=== PATIENT | female | born 1955 | race Caucasian/White ===

== ENCOUNTER → 2018-04-20 07:12 | Outpatient (CLI) | payer BC, SELFPAY ==
--- NOTE | 2018-04-20 07:16 | BI_ITS ---
MAMMOGRAPHY - BILATERAL SCREENING REASON FOR EXAM: Female, 62 years old. Routine annual screening examination. PERTINENT HISTORY: Non-contributory. TECHNIQUE: Digital bilateral breast naga (3D mammographic acquisition) in the CC and MLO projections. 2-D mediolateral oblique (MLO) and craniocaudad (CC) views of both breasts were obtained. CAD: Full Field Digital Mammography with Computer Added Detection was performed. COMPARISON: Comparison is made with prior study dated August 19, 2016 and September 05, 2014. FINDINGS: Breast Composition: There are scattered areas of fibroglandular density. There are no dominant masses or suspicious calcifications. No other significant abnormalities are identified. There has been no significant change since the prior study. BI/SCREENING MAMM (CAD), BILAT IMPRESSION: Stable bilateral screening mammogram. Yearly follow-up mammogram recommended. (A) ASSESSMENT CATEGORY: BIRADS Category 1: Negative. A letter regarding these results will be sent to the patient by the facility within 30 days. Approximately 10% of breast cancers are not detected by mammography. A normal mammogram should not delay biopsy of a clinically suspicious abnormality. [id number] Electronically Signed: Zackary Liu, at 9:50 EDT , Service support ,
== END ==
PROVIDERS: Family Provider Family Medicine; PCP Family Medicine; Referring Provider Obstetrics & Gynecology; Visit Provider Obstetrics & Gynecology
DX: Z12.31 Encounter for screening mammogram for malignant neoplasm of breast (principal)
CPT/HCPCS: 77063; 77067

== ENCOUNTER → 2019-01-11 13:12 | Outpatient (CLI) | payer BC, SELFPAY ==
--- NOTE | 2019-01-11 13:18 | CT_ITS ---
STUDY: CT MAXILLOFACIAL SINUSES REASON FOR EXAM: Female, 63 years old. Sinusitis RADIATION DOSAGE (If Supplied By Facility): CTDIvol = ( 33.06 ) mGy, DLP = ( 788.40 ) mGycm TECHNIQUE: The patient was scanned in a multi detector CT scanner. High resolution axial imaging was performed without the administration of intravenous contrast material. Sagittal and coronal images were reconstructed. Individualized dose optimization techniques were used for this CT. COMPARISON: None. FINDINGS: FRONTAL SINUSES: Normal aeration, without mucosal inflammatory disease. ETHMOIDAL SINUSES: There is minimal ethmoid sinus mucosal thickening. MAXILLARY SINUSES: There is a near opacified appearance of the left maxillary sinus with multiple mucosal retention cysts. There is also a left side maxillary tooth with surrounding bony covering and an odontogenic cyst or potentially abscess with expansion into the left maxillary sinus. See image 89 sagittal views. SPHENOIDAL SINUSES: There is mucoid thickening of the sphenoid sinuses. There is patency of the bilateral maxillary infundibuli with normal uncinate processes, ethmoid bullae, and hiatus semilunaris. Normal bilateral middle turbinates. Normal bilateral inferior turbinates. There is mild leftward nasal septal deviation. There is patency of the bilateral nasal airways. There is partially visualized degenerative change in the cervical spine. There is a ovoid shape of the eyes. With proptosis Allowing for this positioning there is a thickened appearance of the lingual tonsils. CT/Sinus/Facial Bone IMPRESSION: Chronic left maxillary sinusitis, sphenoid sinusitis, minimal ethmoid sinusitis. The chronic left maxillary sinusitis may be associated with a odontogenic cyst or potentially a periodontal abscess which is associated with dental root canal. Enlarged ovoid shape of the eyes with proptosis recommend ophthalmology consult. Electronically Signed: Gloria Cedillo MD at 14:06 EST Tel , Service support ,
== END ==
PROVIDERS: Family Provider Family Medicine; PCP Family Medicine; Referring Provider Otolaryngology; Visit Provider Otolaryngology
DX: J32.0 Chronic maxillary sinusitis (principal); J32.3 Chronic sphenoidal sinusitis
CPT/HCPCS: 70486

== ENCOUNTER 2019-11-08 09:36 | Inpatient (IN) | payer BC, SELFPAY ==
[2019-11-08] VITALS (16 sets, daily range): BP systolic 82–173; BP diastolic 48–106; PULSE 63–95; RESP 15–19; TEMP 36.1–36.9; O2SAT 94–100; BMI 28.2; BMI 27.7
--- NOTE | 2019-11-08 09:53 | EKG12_ITS ---
Test Reason : CP Blood Pressure : / mmHG Vent. Rate : 088 BPM Atrial Rate : 088 BPM P-R Int : 148 ms QRS Dur : 092 ms QT Int : 368 ms P-R-T Axes : 065 049 027 degrees QTc Int : 445 ms Normal sinus rhythm Normal ECG Confirmed by CRICKET PAYAN, SAHIL ([id number]), editorial project manager HAIM BARRIGA ([id number]) on 11/15/2019 8:58:11 AM Referred By: JUAN MANUEL Confirmed By:BIBI HARLEY MD
--- NOTE | 2019-11-08 09:53 | RAD_ITS ---
STUDY: X-RAY CHEST REASON FOR EXAM: Female, 64 years old. PT C/O CHEST PRESSURE. STATES HAD IT THURSDAY AND TOOK CAYENNE PEPPER AND IT WENT AWAY. WAS TOLD BY PCP TO COME IN TODAY TECHNIQUE: Single AP portable view of the chest. COMPARISON: Comparison is made with prior study dated 07/08/2016. FINDINGS: EKG electrodes are seen. Hyperinflation. Scattered calcified granulomas. There is no demonstrated pleural abnormality. Normal size heart. Normal mediastinum and vick. Normal visualized pulmonary arteries. There is atherosclerotic tortuosity of the aortic arch and descending thoracic aorta. There are diffuse degenerative changes of the visualized thoracic spine. Normal visualized ribs, clavicles, and shoulders. There is no demonstrated abnormality of the visualized soft tissue structures of the upper abdomen. RAD/Chest 1 View (Portable) IMPRESSION: Hyperinflation. Scattered calcified granulomas. Electronically Signed: Zackary Liu, at 10:17 EDT , Service support ,
--- NOTE | 2019-11-08 09:54 | ED.DCSUM_ITS ---
History of Present Illness Chief Complaint: Chest Pain Informant: Patient Narrative: Patient presents the emergency room with left-sided chest pressure. She states symptoms began Thursday evening and she took some cayenne pepper and water and fell asleep. She states she felt pretty good yesterday. She was attributing it to lifting her grandchildren. Symptoms returned this morning when she woke and have been constant for the past several hours. She notes it radiates towards her left axilla. She notes that she felt nauseous on the way into the hospital today. Patient is treated for hypertension and states that she is a prediabetic. No shortness of breath. Nothing seems to make the pain better or worse. No fevers. No cough. She currently takes HCTZ for hypertension. She states that in the past she was on a beta-brigette but wanted to reduce number of prescription she is took and it was discontinued. Past Medical History - Allergies and Home Meds Allergies/Adverse Reactions: Allergies Sulfa (Sulfonamide Antibiotics) Allergy (Verified 11/08/19 09:36) Rash Primary Care Physician: Abdoul Cheng DO [Primary Care Provider] - Prior records reviewed: Yes Past Medical History: - - Hypertension Surgical History: noncontributory Smoking Status: Never smoker Drugs: None Review of Systems General: Denies: Chills, Fever, Sweats Eyes: Denies: Visual changes - bilaterally, Diplopia ENT: Denies: Rhinorrhea, Sore throat Cardiovascular: Reports: Chest pain. Denies: Palpitations Respiratory: Denies: Dyspnea, Cough, Dyspnea on exertion Gastrointestinal: Denies: Abdominal pain, Nausea, Vomiting, Diarrhea, Melena, Hematochezia Genitourinary: Denies: Dysuria, Hematuria, Frequency Musculoskeletal: Reports: Extremity Pain - Chronic knee and foot issues. Denies: Back pain Skin: Denies: Rash, Wounds Neurological: Denies: Headache, Weakness, Numbness Physical Exam Vital Signs/Narrative: Vital Signs Temp Pulse Resp BP Pulse Ox 11/08/19 09:38 97.4 F L 87 16 168/106 H 100 Inital Vital Signs reviewed: Yes General: Well nourished, Well developed, No Acute Distress Head: Normocephalic, Atraumatic Eyes: Perrl, EOMI ENT: Moist mucous membranes, No rhinorrhea Neck: Supple, Nontender Cardiovascular: Regular rate, Regular rhythm, No murmurs Respiratory: No distress, CTA bilaterally, Chest nontender Abdomen: Soft, Nontender, Nondistended, Normal bowel sounds Back: Nontender, Normal Inspection Extremities: Nontender, No edema Skin: Normal color, No rash Neurological: Alert, Oriented x3, Cranial nerves II-XII grossly intact, Normal Strength, Normal Sensation Psychological: Normal affect, Normal Mood Diagnostic/Tx/Re-eval Clinical Impression(s) from Imaging Studies Chest X-Ray 11/08/19 09:53 IMPRESSION: Hyperinflation. Scattered calcified granulomas. Electronically Signed: Zackary Noe, at 10:17 EDT , Service support , Laboratory Last Values WBC 4.8 K/mm3 (4.4-11.0) 11/08/19 09:54 RBC 4.99 M/mm3 (4.2-5.4) 11/08/19 09:54 Hgb 14.5 g/dL (12.0-15.0) 11/08/19 09:54 Hct 43.8 % (37-47) 11/08/19 09:54 MCV 87.8 fL (81-99) 11/08/19 09:54 MCH 29.1 pg (27.0-32.0) 11/08/19 09:54 MCHC 33.1 g/dL (32-36) 11/08/19 09:54 RDW Std Deviation 42.4 fl (35.1-43.9) 11/08/19 09:54 RDW Coeff of Mary 13.4 % (11.6-14.6) 11/08/19 09:54 Plt Count 277 K/mm3 (150-450) 11/08/19 09:54 MPV 8.9 fl (6.2-12.0) 11/08/19 09:54 Immature Gran % (Auto) 0.200 % (0.0-0.9) 11/08/19 09:54 Neut % (Auto) 68.6 % (47-70) 11/08/19 09:54 Lymph % (Auto) 18.2 % (19-41) L 11/08/19 09:54 [place] % (Auto) 6.8 % (0-10) 11/08/19 09:54 Eos % (Auto) 5.8 % (0-5) H 11/08/19 09:54 Baso % (Auto) 0.4 % (0-1) 11/08/19 09:54 Absolute Neuts (auto) 3.3 X10^3/uL (2.0-7.7) 11/08/19 09:54 Absolute Lymphs (auto) 0.88 X10^3/uL (0.83-4.51) 11/08/19 09:54 Nucleated RBC % 0 % (0-5) 11/08/19 09:54 Sodium 138 mmol/L (136-145) 11/08/19 10:30 Potassium 3.5 mmol/L (3.5-5.1) 11/08/19 10:30 Chloride 105 mmol/L (98-107) 11/08/19 10:30 Carbon Dioxide 28.0 mmol/L (21.0-32.0) 11/08/19 10:30 Anion Gap 5 (5-15) 11/08/19 10:30 BUN 18 mg/dL (7-18) 11/08/19 10:30 Creatinine 0.80 mg/dL (0.55-1.02) 11/08/19 10:30 Estim Creat Clear Calc 68.26 ml/min 11/08/19 10:30 Est GFR (MDRD) Af Amer 93 mL/min (>60) 11/08/19 10:30 Est GFR (MDRD) Non-Af 77 mL/min (>60) 11/08/19 10:30 BUN/Creatinine Ratio 22.4 RATIO (10-20) H 11/08/19 10:30 Glucose 114 mg/dL (74-106) H 11/08/19 10:30 Calcium 9.3 mg/dL (8.5-10.1) 11/08/19 10:30 Troponin I 0.378 ng/mL (<0.045) H 11/08/19 10:30 - EKG Initial EKG Interpretation: Sinus Rhythm - EKG demonstrates a normal sinus rhythm at a rate of 88 without ectopy or concerning features of ACS - Medical Decision Making Patient's initial EKG does not show any concerning features of ACS. Her troponin reveals elevation consistent with NSTEMI. Initially the patient received Toradol to see if that would make an improvement in her pain. After the troponin came back elevated she received aspirin and nitroglycerin. She continues to have some discomfort (2/10) but became hypotensive 82/48 after the third nitroglycerin. She received IV fluids. I spoke with Dr. Aguirre (on-call cardiology) who would like the patient placed on a heparin and nitroglycerin drip (if possible) and admitted for plan karsten heart cath today. I spoke with Dr. Millan who will be admitting the patient. - Critical Care Time Critical care time (excluding procedures): 30-74 minutes - 35 min ED Disposition - Plan for ED Patient: Disposition: Acute Care Hospital [facility] Diagnosis: Acute chest pain, Acute coronary syndrome with high troponin Referrals: Abdoul Cheng DO [Primary Care Provider] -
[2019-11-08] MEDS: Ketorolac 30 MG/ML Syringe IV (10:02)
[2019-11-08 10:04] LABS: Absolute Lymphocyte Count 0.88 X10^3/uL (0.83-4.51); Absolute Neutrophil Count 3.3 X10^3/uL (2.0-7.7); Basophil# 0.02 X10^3/uL; Basophil% 0.4 % (0-1); Eosinophil# 0.28 X10^3/uL; Eosinophils% 5.8 % (0-5); Hematocrit 43.8 % (37-47); Hemoglobin 14.5 g/dL (12.0-15.0); Lymphocyte # 0.88 X10^3/ul (4.0); Lymphocyte % 18.2 % (19-41); Mean Corp Hgb Conc 33.1 g/dL (32-36); Mean Corpuscular Hgb 29.1 pg (27.0-32.0); Mean Corpuscular Volume 87.8 fL (81-99); Mean Platelet Vol. 8.9 fl (6.2-12.0); Monocyte# 0.33 X10^3/uL; Monocyte% 6.8 % (0-10); NRBC Flagged by Analyzer 0 % (0-5); Neutrophil # 3.31 X10^3/uL (2.7-7.7); Neutrophil % 68.6 % (47-70); Platelet Count 277 K/mm3 (150-450); RBC Distribution Width CV 13.4 % (11.6-14.6); RBC Distribution Width SD 42.4 fl (35.1-43.9); Red Blood Count 4.99 M/mm3 (4.2-5.4); White Blood Count 4.8 K/mm3 (4.4-11.0)
[2019-11-08 10:55] LABS: Anion Gap 5 (5-15); BUN 18 mg/dL (7-18); BUN/Creat Ratio 22.4 RATIO (10-20); Calcium,Total 9.3 mg/dL (8.5-10.1); Chloride 105 mmol/L (98-107); EST Glomerular Filtration Rate 77 mL/min (>60); Est Glom Filt Rate - Afr Amer 93 mL/min (>60); Estimated Creatinine Clearance 68.26 ml/min; Glucose 114 mg/dL (74-106); Potassium 3.5 mmol/L (3.5-5.1); Sodium Level 138 mmol/L (136-145)
[2019-11-08] MEDS: Aspirin 81 MG TAB.CHEW 324 MG PO (11:20)
[2019-11-08] MEDS: Nitroglycerin SL (ED/IMG/CATH) 0.4 MG TABLET SUBLINGUAL ×3 (11:21→11:35)
[2019-11-08 11:51] LABS: Prothrombin Time (Protime)PT. 12.9 SECONDS (11.7-14.9)
[2019-11-08 11:52] LABS: Partial Thromboplast Time 29.4 Seconds (24.1-36.2)
[2019-11-08] MEDS: Heparin Injection (Vial) 5,000 UNIT/ML VIAL 5000 UNIT IV (12:09)
--- NOTE | 2019-11-08 13:11 | ECHOD_ITS ---
Reason For Study: S/P NV Procedure This was a 2D Doppler, Color Flow transthoracic echocardiogram. Exam performed portable in patient room. Left Ventricle Normal LV size. The estimated ejection fraction is 65 %. No evidence for diastolic dysfunction. No regional wall motion abnormalities noted. Right Ventricle Normal RV size. Normal systolic function. Atria Normal left atrium. Normal right atrium. No doppler evidence for ASD. Mitral Valve There is no mitral valve stenosis. Trivial mitral valve insufficiency. Tricuspid Valve There is no tricuspid stenosis. Mild tricuspid valve insufficiency. Pulmonary artery systolic pressure is 35 mmHg. Aortic Valve Trisinus/trileaflet aortic valve. Aortic sclerosis, no stenosis. There is no aortic stenosis. No aortic valve insufficiency. Pulmonic Valve There is no pulmonic valvular stenosis. No pulmonic valve insufficiency. Great Vessels Normal aortic root. Pericardium/Pleural No pericardial effusion. MMode/2D Measurements & Calculations LVIDd: 4.9 cm IVSd: 0.89 cm Ao root diam: 3.6 cm LVIDs: 2.7 cm LVPWd: 1.0 cm RVDd: 3.2 cm FS: 44.9 % LAV(MOD-bp): 41.2 ml LA A4 area: 14.4 cm2 LA dimension(2D): 3.9 cm LAV(MOD-bp) Indexed: 22.0 ml/m2 LAV(MOD-sp2): 44.5 ml LAV(MOD-sp4): 36.0 ml RA A4 area: 12.8 cm2 Time Measurements MV dec time: 0.19 sec Doppler Measurements & Calculations MV E max oc: 97.6 cm/sec Lat Peak E' Oc: 10.7 cm/sec Med Peak E' Oc: 6.5 cm/sec MV A max oc: 107.9 cm/sec E/E' lat: 9.1 E/E' med: 14.9 MV E/A: 0.90 MV V2 max: 103.6 cm/sec Ao V2 max: 190.7 cm/sec LV V1 max: 161.8 cm/sec MV max P.3 mmHg Ao max P.6 mmHg LV V1 max P.5 mmHg MV V2 mean: 75.0 cm/sec MV mean P.4 mmHg MV V2 VTI: 20.4 cm PA V2 max: 124.5 cm/sec PI end-d oc: 135.6 cm/sec TR max oc: 269.3 cm/sec TR max P.0 mmHg MV P1/2t-pr_phl: 42.7 msec Interpretation Summary The estimated ejection fraction is 65 %. No evidence for diastolic dysfunction. Trivial mitral valve insufficiency. Mild tricuspid valve insufficiency. Ordering Physician: Madyson Millan Referring Physician: MADYSON GARCIA Performed By: Yarely Espinoza, BRITTANIE, RVT
[2019-11-08] MEDS: Clopidogrel Bisulfate 300 MG Tablet PO (14:39)
--- NOTE | 2019-11-08 14:54 | PCM.HP.STD ---
Problem List (1) Acute chest pain Status: Acute (2) Acute coronary syndrome with high troponin Status: Acute (3) Hypertension Status: Chronic (4) Depression Status: Chronic History of Present Illness Date of Admission: 11/08/19 Chief Complaint: Chest pressure. The patient is a 64 year old F who presents emergency room due to chest pressure. Patient reports she had episode of chest pressure on Thursday on the left side of her chest which wrapped around to her axillary area she reports the pressure as severe. She states that episode lasted approximately 2 hours. She thought it may have been associated with lifting her grandchildren. Her symptoms resolved until this morning when she awoke with the same chest pressure, wrapping into her axillary area. She states she attempted cayenne pepper mixed with water to relieve her symptoms as she typically uses natural therapies. She denies associated shortness of breath, diaphoresis, dizziness/lightheadedness. She denies history of heart disease. Her chest pressure improved following nitro in ER. She has a past medical history of hypertension, depression. Past Medical History Past Medical History (Chronic Problems): Chronic Problems Hypertension (Chronic) Depression (Chronic) Allergies Sulfa (Sulfonamide Antibiotics) Allergy (Verified 11/08/19 09:36) Rash Home Medications: Ambulatory Orders Medication Instructions Recorded Fluoxetine [Prozac] 40 mg PO DAILY 11/08/19 Hydrochlorothiazide [Hctz] 25 mg PO DAILY 11/08/19 Thyroid,Pork [Nature-Throid] 16.25 mg PO DAILY 11/08/19 Surgical History: tonsillectomy, - - Right knee partial replacement, left knee total replacement. Psychiatric History: Depression MANAGEMENT ADVISOR History: No pertinent MANAGEMENT ADVISOR history Lives: Spouse/ Significant Other Smoking Status: Never smoker Alcohol: None Drugs: None - *Family History Maternal History Items: Hypertension Paternal History Items: Cancer Review of Systems Constitutional: Denies: Chills, Fever, Weight Change HEENT: Denies: Head Aches, Sinus Congestion, Sinus Drainage Cardiovascular: Reports: Chest Pressure. Denies: Light Headedness, Palpitations, Syncope Gastrointestinal: Denies: Abdominal Pain, Nausea, Vomiting Genitourinary: Denies: Dysuria Musculoskeletal: Denies: Joint Pain, Joint Tenderness Skin: Denies: Rash, Wounds Neurological: Denies: Numbness, Tingling, Focal weakness Psychiatric: Denies: Anxiety, Depression, Homicidal Ideations, Suicidal Ideations Hematologic/ Lymphatic: Denies: Easy Bruising, Easy Bleeding VTE Information - Inpt Only VTE Present on Admission: No VTE Mechan Device Prophylaxis: None VTE Pharm Prophylaxis ordered?: Yes Patient Problems: Active and Suspected Problems Acute chest pain (Acute) Acute coronary syndrome with high troponin (Acute) - Physical Exam Vitals/I&O's: Vital Signs Temp Pulse Resp BP Pulse Ox 98.2 F 85 18 153/85 H 97 11/08/19 12:53 11/08/19 13:08 11/08/19 12:53 11/08/19 12:53 11/08/19 12:53 Oxygen Flow Rate (L/min) 2 Oxygen Delivery Method Room Air Weight: 172 lb 6.424 oz Body Mass Index (BMI) 27.7 Intake and Output for Last 24 Hours 11/06/19 11/07/19 11/08/19 23:59 23:59 23:59 Intake Total 500 / 500 Balance 500 / 500 General: Alert, Oriented x3, Cooperative HEENT: Atraumatic, PERRLA, EOMI, Normocephalic Neck: Supple, No JVD, Negative Carotid Bruits Lungs: Clear to auscultation, Normal air movement Cardiovascular: Regular rate, No murmurs Abdomen: Bowel Sounds Present, Soft, Non Tender, Non-Distended Extremities: No clubbing, No cyanosis, No edema, Capillary Refill Less than 3 Seconds Skin: No rashes, No breakdown Musculoskeletal: No Tenderness to Palpation of Joints or Extremities Neurological: Cranial nerves II-XII grossly intact, Neuro grossly intact Psych/Mental Status: Normal Affect, Appropriate Laboratory Results 11/08/19 09:54: WBC 4.8, RBC 4.99, Hgb 14.5, Hct 43.8, MCV 87.8, MCH 29.1, MCHC 33.1, RDW Std Deviation 42.4, RDW Coeff of Mary 13.4, Plt Count 277, MPV 8.9, Immature Gran % (Auto) 0.200, Neut % (Auto) 68.6, Lymph % (Auto) 18.2 L, [place] % (Auto) 6.8, Eos % (Auto) 5.8 H, Baso % (Auto) 0.4, Absolute Neuts (auto) 3.3, Absolute Lymphs (auto) 0.88, Nucleated RBC % 0 11/08/19 09:54: Sodium Cancelled, Potassium Cancelled, Chloride Cancelled, Carbon Dioxide Cancelled, Anion Gap Cancelled, BUN Cancelled, Creatinine Cancelled, Estim Creat Clear Calc Cancelled, Est GFR (MDRD) Af Amer Cancelled, Est GFR (MDRD) Non-Af Cancelled, BUN/Creatinine Ratio Cancelled, Glucose Cancelled, Calcium Cancelled, Troponin I Cancelled 11/08/19 10:30: Sodium 138, Potassium 3.5, Chloride 105, Carbon Dioxide 28.0, Anion Gap 5, BUN 18, Creatinine 0.80, Estim Creat Clear Calc 68.26, Est GFR (MDRD) Af Amer 93, Est GFR (MDRD) Non-Af 77, BUN/Creatinine Ratio 22.4 H, Glucose 114 H, Calcium 9.3, Troponin I 0.378 H 11/08/19 11:34: PT 12.9, INR 1.0, APTT 29.4 11/08/19 13:35: Troponin I 1.390 H* Current Medications Aspirin (Aspirin, Baby) 81 mg PO DAILY@0800 [facility] Clopidogrel Bisulfate (Plavix) 75 mg PO DAILY [facility] Heparin Sodium (Porcine) (Heparin Na) 0 unit IV UD PRN; Protocol PRN Reason: dose adjustment Heparin Sodium/Sodium Chloride () 25,000 unit in 250 mls @ 9 mls/hr IV .[id number] [facility]; Protocol Last Admin: 11/08/19 14:35 Dose: 9,000 units/hr, 90 mls/hr Documented by: Morphine Sulfate () 4 mg IV Q3H PRN PRN PRN Reason: Pain Score 6-10/10 Nitroglycerin (Nitrobid) 0.5 inch TRANSDERM. Q6 [facility] Nitroglycerin (Nitrostat) 0.4 mg SUBLINGUAL Q5M PRN PRN Reason: CARDIAC/CHEST PAIN Ondansetron HCl (Zofran) 4 mg IV Q8H PRN PRN PRN Reason: NAUSEA/VOMITING Sodium Chloride () 10 - 40 ml IV UD PRN PRN Reason: SALINE FLUSH Temazepam (Restoril) 15 mg PO QHS PRN PRN PRN Reason: INSOMNIA Assessment/Plan All Active Problems Acute chest pain (Acute) Acute coronary syndrome with high troponin (Acute) 1. NSTEMI-trend enzymes. Cardiology consult. Continue aspirin, Plavix. On heparin drip. Transdermal nitro. Plan for cath in a.m. Obtain echo. Obtain lipid profile. 2. Hypertension-stable, on HCTZ. 3. Depression-continue fluoxetine. DVT prophylaxis-Heparin drip This patient was seen by ILANA Mesa under the supervision of Dr. Millan.
[2019-11-08] MEDS: Nitroglycerin Oint 1 INCH PACKET 0.5 INCH TRANSDERM. (18:24)
[2019-11-08] MEDS: 0.9% Saline Lock 10 ML Syringe IV (18:30)
--- NOTE | 2019-11-08 20:41 | EKG12_ITS ---
Test Reason : AM EKG Blood Pressure : / mmHG Vent. Rate : 086 BPM Atrial Rate : 086 BPM P-R Int : 150 ms QRS Dur : 094 ms QT Int : 392 ms P-R-T Axes : 070 060 026 degrees QTc Int : 469 ms Normal sinus rhythm Normal ECG When compared with ECG of 08-NOV-2019 20:54, MANUAL COMPARISON REQUIRED, DATA IS UNCONFIRMED Confirmed by CRICKET PAYAN, SAHIL ([id number]), commissioning editor HAIM BARRIGA ([id number]) on 11/15/2019 9:16:16 AM Referred By: ORIANA Confirmed By:BIBI HARLEY MD
[2019-11-08 21:34] LABS: Partial Thromboplast Time 54.7 Seconds (24.1-36.2)
[2019-11-08] MEDS: Carvedilol 6.25 MG Tablet PO (21:57)
[2019-11-08] MEDS: Atorvastatin Calcium 40 MG Tablet PO (21:57)
[2019-11-09] VITALS (14 sets, daily range): BP systolic 102–149; BP diastolic 71–96; PULSE 73–90; RESP 15–22; TEMP 36.8–36.9; O2SAT 94–98
[2019-11-09] MEDS: Nitroglycerin Oint 1 INCH PACKET 0.5 INCH TRANSDERM. ×2 (00:12→06:15)
[2019-11-09 01:32] LABS: Color, Urine Yellow (Yellow); Glucose, Dipstick Normal (Normal); Ketone-Dipstick Negative (Negative); Leukocyte Esterase-Dipstick 100 /ul (Negative); Nitrite-Dipstick Negative (Negative); Occult Blood-Urine Negative /ul (Negative); Protein-Dipstick Negative (Negative); Urine Bilirubin Dipstick Negative (Negative); Urine Clarity Clear (Clear); Urine Urobilinogen Normal (Normal)
[2019-11-09 04:08] LABS: Anion Gap 5 (5-15); BUN 19 mg/dL (7-18); BUN/Creat Ratio 30.1 RATIO (10-20); Calcium,Total 9.1 mg/dL (8.5-10.1); Chloride 106 mmol/L (98-107); Cholesterol 203 mg/dL (200); Creatinine, Serum 0.63 mg/dL (0.55-1.02); EST Glomerular Filtration Rate 101 mL/min (>60); Est Glom Filt Rate - Afr Amer 123 mL/min (>60); Estimated Creatinine Clearance 86.68 ml/min; Glucose 110 mg/dL (74-106); High Density Lipoprotein 46 mg/dL; Potassium 3.4 mmol/L (3.5-5.1); Sodium Level 139 mmol/L (136-145); Triglycerides 323 mg/dL; Very Low Density Lipoprotein 65 mg/dL (5-40)
--- NOTE | 2019-11-09 05:55 | EKG12_ITS ---
Test Reason : CP Blood Pressure : / mmHG Vent. Rate : 079 BPM Atrial Rate : 079 BPM P-R Int : 154 ms QRS Dur : 092 ms QT Int : 398 ms P-R-T Axes : 064 035 020 degrees QTc Int : 456 ms Normal sinus rhythm Normal ECG When compared with ECG of 08-NOV-2019 09:43, MANUAL COMPARISON REQUIRED, DATA IS UNCONFIRMED Confirmed by CRICKET PAYAN, SAHIL ([id number]), editor producer HAIM BARRIGA ([id number]) on 11/15/2019 9:17:52 AM Referred By: ORIANA Confirmed By:BIBI HARLEY MD
[2019-11-09] MEDS: Clopidogrel Bisulfate 75 MG Tablet PO (06:15)
[2019-11-09] MEDS: Aspirin 81 MG TAB.CHEW PO (06:15)
[2019-11-09] MEDS: Carvedilol 6.25 MG Tablet PO (06:15)
--- NOTE | 2019-11-09 07:20 | NURSING ---
Report called to Tevin in label press operator.
--- NOTE | 2019-11-09 08:54 | CON.PCM_ITS ---
Reason for Consult Date of Consultation: 11/08/19 Reason for Consultation: nstemi History of Present Illness: The patient is a 64 year old F who presents emergency room due to chest pressure. Patient reports she had episode of chest pressure on Thursday on the left side of her chest which wrapped around to her axillary area she reports the pressure as severe. She states that episode lasted approximately 2 hours. She thought it may have been associated with lifting her grandchildren. Her symptoms resolved until this morning when she awoke with the same chest pressure, wrapping into her axillary area. She states she attempted cayenne pepper mixed with water to relieve her symptoms as she typically uses natural therapies. She denies associated shortness of breath, diaphoresis, dizziness/lightheadedness. She denies history of heart disease. Her chest pressure improved following nitro in ER. She has a past medical history of hypertension, depression. ROS: All systems reviewed. All else is negative except that in the HPI Past Medical History Allergies/Adverse Reactions: Allergies Sulfa (Sulfonamide Antibiotics) Allergy (Verified 11/08/19 09:36) Rash Home Medications: Ambulatory Orders Medication Instructions Recorded Fluoxetine [Prozac] 40 mg PO DAILY 11/08/19 Hydrochlorothiazide [Hctz] 25 mg PO DAILY 11/08/19 Thyroid,Pork [Nature-Throid] 16.25 mg PO DAILY 11/08/19 Past Medical History (Chronic Problems): Chronic Problems Hypertension (Chronic) Depression (Chronic) Surgical History: tonsillectomy, - - Right knee partial replacement, left knee total replacement. Psychiatric History: Depression PATIENT DAY COORDINATOR History: No pertinent PATIENT DAY COORDINATOR history - *Family History Maternal History Items: Hypertension Paternal History Items: Cancer Lives: Spouse/ Significant Other Smoking Status: Never smoker Alcohol: None Drugs: None Objective: Vital Signs Temp Pulse Resp BP Pulse Ox 98.3 F 90 17 147/96 H 96 11/09/19 04:13 11/09/19 07:00 11/09/19 04:13 11/09/19 06:15 11/09/19 04:13 Oxygen Flow Rate (L/min) 2 Oxygen Delivery Method Room Air Weight: 172 lb 6.424 oz Body Mass Index (BMI) 27.7 Intake and Output for Last 24 Hours 11/07/19 11/08/19 11/09/19 23:59 23:59 23:59 Intake Total 1561.57 / 1561.57 114.66 / 114.66 Balance 1561.57 / 1561.57 114.66 / 114.66 General: Awake, Alert, Oriented x 3 HEENT: Atraumatic Oral: Moist Mucosa Neck: Supple Lungs: Clear to auscultation Cardiovascular: Regular Rhythm Abdomen: Soft Extremities: No edema Skin: No Rashes Psych/Mental Status: Appropriate 11/08/19 09:54: WBC 4.8, RBC 4.99, Hgb 14.5, Hct 43.8, MCV 87.8, MCH 29.1, MCHC 33.1, Plt Count 277, MPV 8.9, Immature Gran % (Auto) 0.200, Neut % (Auto) 68.6, Lymph % (Auto) 18.2 L, [place] % (Auto) 6.8, Eos % (Auto) 5.8 H, Baso % (Auto) 0.4, Absolute Neuts (auto) 3.3, Nucleated RBC % 0 11/08/19 09:54: Sodium Cancelled, Potassium Cancelled, Chloride Cancelled, Carbon Dioxide Cancelled, Anion Gap Cancelled, BUN Cancelled, Creatinine Cancelled, Est GFR (MDRD) Af Amer Cancelled, Est GFR (MDRD) Non-Af Cancelled, BUN/Creatinine Ratio Cancelled, Glucose Cancelled, Calcium Cancelled, Troponin I Cancelled 11/08/19 10:30: Sodium 138, Potassium 3.5, Chloride 105, Carbon Dioxide 28.0, Anion Gap 5, BUN 18, Creatinine 0.80, Est GFR (MDRD) Af Amer 93, Est GFR (MDRD) Non-Af 77, BUN/Creatinine Ratio 22.4 H, Glucose 114 H, Calcium 9.3, Troponin I 0.378 H 11/08/19 11:34: PT 12.9, INR 1.0, APTT 29.4 11/08/19 13:35: Troponin I 1.390 H* 11/08/19 17:03: Troponin I 2.040 H* 11/08/19 20:30: APTT 54.7 H 11/09/19 01:00: Urine Color Yellow, Urine Clarity Clear, Urine pH 6.0, Ur Specific [place] 1.010, Urine Protein Negative, Urine Glucose (UA) Normal, Urine Ketones Negative, Urine Occult Blood Negative, Urine Nitrite Negative, Urine Bilirubin Negative, Urine Urobilinogen Normal, Ur Leukocyte Esterase 100 H 11/09/19 03:40: Sodium 139, Potassium 3.4 L, Chloride 106, Carbon Dioxide 28.0, Anion Gap 5, BUN 19 H, Creatinine 0.63, Est GFR (MDRD) Af Amer 123, Est GFR (MDRD) Non-Af 101, BUN/Creatinine Ratio 30.1 H, Glucose 110 H, Calcium 9.1, Triglycerides 323 H, Cholesterol 203 H, LDL Cholesterol 92, VLDL Cholesterol 65 H, HDL Cholesterol 46 11/09/19 03:40: APTT 62.0 H Rhythm: EKG: ECHO: Stress Test: Cardiac Cath: PCI: CT Surgery: Holter monitor: EPS: PPM: CXR: Chest CT Scan: Assessment/Plan 1. Non-STEMI: Keep the patient on heparin, aspirin, Plavix, statin and beta- brigette. We will proceed with coronary angiography.
--- NOTE | 2019-11-09 09:10 | CASEMGMT ---
According to the [facility] website, the following are in-network tertiary facilities: [facility], [facility], [facility], [facility], [facility], [facility], [facility], and . Tammie PEREZ CM
[2019-11-09] MEDS: 0.9% Normal Saline 1,000 ML 100 ML IV (09:15)
[2019-11-09] MEDS: 0.9% Saline Lock 10 ML Syringe IV (09:16)
[2019-11-09 10:03] LABS: Partial Thromboplast Time 59.6 Seconds (24.1-36.2)
[2019-11-09] MEDS: hydroCHLOROthiazide 25 MG Tablet PO (10:03)
[2019-11-09] MEDS: FLUoxetine 20 MG Capsule 40 MG PO (10:03)
--- NOTE | 2019-11-09 10:04 | CL.D_ITS ---
Patient Name: MARY KAY GREENWOOD Study Date: 11/09/2019 Performing: Perfecto Aguirre MD Ht: 66 inches 168 cm : 1955 Wt: 172.2 lbs 78 kg Age: 64 Gender: female BSA: 1.88 PROCEDURE(S) PERFORMED TA42-CFQ/COR/LV CLINICAL PROFILE AND INDICATIONS Indications: ACS <= 24 hrs Heart Failure: None Stress/Imaging Stress/Image Study Performed: No CAD Presentations: Non-STEMI. 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 Preserved EF. No significant or MR RECOMMENDATIONS Medical management with ASA and BB DESCRIPTION OF PROCEDURE The patient arrived to the procedure lab. The risks and benefits of the procedure as well as a full d escription of our services here and current unavailability of surgical backup were fully explained to the patient and/or their significant other prior to the catheterization. The Timeout was completed, verifying the correct patient and procedure. The patient's procedural site was prepped and draped in the usual fashion. Local anesthetic was given subcutaneously to right radial region with Lidocaine 2% . Using a modified Seldinger technique, arterial access was obtained via the right radial artery, a 6 Fr sheath was inserted. Left Coronary Artery selective angiography was performed in multiple views u sing a 5 Fr. JL3.5 catheter. Left Ventriculography was performed in [place] projection using a 5 Fr. JR4. LV to AO pullback pressures were then recorded. Right Coronary Artery selective angiography was then performed in multiple views using a 5 Fr. JR 4 catheter.The arterial sheath was pulled and a TR Band was applied for hemostasis w/ 11ml CORONARY ANGIOGRAPHY DOMINANCE: Right Dominant LEFT HEART ASSESSMENT Left Ventricular Ejection Fraction: by LV Gram 60 % Normal LV wall motion LEFT MAIN: No significant disease noted LEFT ANTERIOR DESCENDING ARTERY: No significant disease noted CIRCUMFLEX ARTERY: No significant disease noted RIGHT CORONARY ARTERY: RT PLV: distal end of the RPL is severely narrowed due to what appears to be due to spontaneous coron thomas artery dissection. Rest of the RCA, RPL and RPDA have no significant disease VALVE FINDINGS: No Aortic Valve Stenosis No Mitral Insufficency COMPLICATIONS No Complications PROCEDURE MEDICATIONS Versed 1 mg IV Fentanyl 50 mcg IV Oxygen: 2 L/min via nasal cannula Heparin diluted in 23cc Heparinized saline. Patient given 10cc IA of this solution. 11/09/2019 08:22: 15 Verapamil 2.5mg, Ntg 100mcgs, 2000 units of Heparin diluted in 23cc Heparinized saline. Patient give n 10cc IA of this solution. 11/09/2019 08:22:15 SUMMARY OF HEMODYNAMIC DATA Time AIR REST ECG 07:57:35 AO 80/51 (62) SA 08:24:40 LV 138/-8, 8 08:28:45 LV 141/-9, 9 08:28:51 LV 129/-11, 5 08:29:26 LVp 135/-7, 10 08:29:33 AOp 133/79 (104) 08:29:38 AO 129/77 (100) 08:29:46 Signed By Perfecto Aguirre MD On 11/09/2019 10:03:32 AM Perfecto Aguirre MD
--- NOTE | 2019-11-09 10:34 | CASEMGMT ---
ANA SHAH assessment: Face to Face with patient for initial transition planning/care coordination assessment. ANA SHAH introduced self and role at [facility], pt voices understanding and consents to assessment at this time. Pt is sitting up in bed in no distress at this time. Pt is A/Ox4 at this time and answers all questions appropriately at this time. Pt's is at bedside during assessment. Care providers, pharmacy, and demographics verified/updated at this time. Presentation: Pt c/o chest pressure Admitting dx: ACS, NSTEMI PCP: Skylar Specialists: susy Giles Pharmacy: [facility] Insurance: [place] Prescription Benefit: [place] Living Will/HPOA: Pt states has a LW/HPOA and is aware that they are not on file at [facility] at this time. Pt states her , Ortega Stewart, is HPOA. LNOK: Ortega Stewart, Living Arrangements: Pt states lives with in 1 story home with laundry in basement and states no concerns at home at this time. Pt states is independent with ADL's. Transportation: Pt states drives self and states no transportation concerns at this time. DME/HHC: Pt states has grab bars in shower and states no need for any further DME at this time. Pt states no hx of HHC or SNF in the past. Pt states no concerns with going home at time of discharge. 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 Pt states does not smoke cigarettes or drink ETOH. Pt states no further concerns/needs at this time. CM to follow for any further discharge planning/needs. Advised pt to ask for CM if any further questions/concerns/needs arise, voices understanding. Pt Goal: Home Plan[place] ANA SHAH
--- NOTE | 2019-11-09 10:57 | PCM.DC ---
- Discharge Diagnoses Current Active Problems: Current Active and Chronic Problems Acute chest pain (Acute) Acute coronary syndrome with high troponin (Acute) Hypertension (Chronic) Depression (Chronic) You will use the following diet at home:: No restrictions Your food should be the consistency of: Regular Your liquids should be the consistency of: Regular/Thin Discharge Activity: Return to Normal Activity Return to work on:: 11/16/19 Weight Bearing Status: Full weight bearing Additional Instructions: TAKE 81 MG ASPIRIN DAILY Allergies/Adverse Reactions: Allergies Sulfa (Sulfonamide Antibiotics) Allergy (Verified 11/08/19 09:36) Rash Medications to take at Discharge Fluoxetine [Prozac] 40 mg PO DAILY 11/08/19 Thyroid,Pork [Nature-Throid] 16.25 mg PO DAILY 11/08/19 Carvedilol [Coreg] 12.5 mg PO BID #60 tab 11/09/19 The following prescriptions were given: Carvedilol [Coreg] 12.5 mg PO BID #60 tab Transmission Status: Pending to [facility] #30 Primary Care Physician: Abdoul Cheng DO [Primary Care Provider] - Please follow up with your Primary Care Physician in: in 1-2 Test Results: Test results from this visit will be discussed in further detail at your follow-up appointment, if applicable. Please Follow Up With: Katey Aguirre MD When: in 3 weeks
--- NOTE | 2019-11-09 12:08 | PHA.DC.MC ---
Pharmacy Service has performed discharge medication reconciliation and counseling for this patient. 1. CARVEDILOL 12.5MG PO BID 2. ASPIRIN 81MG PO DAILY (PER D/C INSTRUCTIONS) The patient's discharge medication list was reviewed for discrepancies and discrepancies were resolved. Home Medications Fluoxetine [Prozac] 40 mg PO DAILY 11/08/19 Thyroid,Pork [Nature-Throid] 16.25 mg PO DAILY 11/08/19 Carvedilol [Coreg] 12.5 mg PO BID #60 tab 11/09/19 The patient was counseled on the following discharge medications and changes in medications for homegoing were reviewed. The Reason for Use, instructions for use, and potential side effects were reviewed for all new medications. The patient's questions regarding all of their medications were answered. The patient was able to verbally demonstrate an understanding of their discharge medications.
--- NOTE | 2019-11-14 13:40 | PCM.DC.SUM ---
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 #2 essential hypertension #3 chronic depression #4 acute non-STEMI - Secondary Discharge Diagnosis Chronic Problems: Chronic Problems Hypertension (Chronic) Depression (Chronic) Hospital Course and Treatment Operations: None Procedures: 2-D Echocardiogram, Cardiac catheterization Summary of Care Provided: The patient is a 64 year old F who was seen in the emergency room at [facility] with chief complaint of left-sided chest pressure, she stated the discomfort first started 2 days ago and went away spontaneously, the symptoms return morning she was seen in the emergency room shortly after she woke and it been constant for the past several hours. Work-up in the emergency room included an EKG which does not show any signs of acute ischemic changes, troponin was elevated at 0.378 consistent with a non-STEMI, patient will receive aspirin and nitroglycerin in the emergency room and IV fluids. Patient was placed on IV heparin and Nitropaste and admitted to PCU, echocardiogram was obtained that day which showed a normal EF, she was seen in consultation by cardiology who then performed a cardiac catheterization on 11/09/2019-this revealed a spontaneous coronary artery dissection in the right coronary artery, the treatment for this would be medical. On 11/09/2019, patient was seen and examined: On examination she appeared in good health and spirits, she does not appear to be in any distress. Vital signs as documented. Skin warm and dry and without overt rashes. Neck without JVD, thyroid appears normal, trachea is midline, neck is supple. Lungs clear, normal air movement was noted. Heart exam notable for regular rhythm, normal sounds and absence of murmurs, rubs or gallops. Abdomen unremarkable and without evidence of organomegaly, masses, or abdominal aortic enlargement, bowel sounds are present in all 4 quadrants, no abdominal tenderness was noted. Extremities nonedematous, no cyanosis was noted, no clubbing was noted. Neuro: Cranial nerves II through XII are grossly intact, no focal motor deficits were noted, sensation to light touch and pinprick is intact, motor exam 5/5 throughout. Psych: Patient is alert and oriented x3, she does not appear anxious or depressed, she does not appear agitated. On 11/09/2019, patient was seen and examined and felt in stable condition for discharge home. - Physical Exam Vitals/I&O's: Vital Signs Temp Pulse Resp BP Pulse Ox 98.5 F 89 19 H 123/75 H 97 11/09/19 11:55 11/09/19 11:55 11/09/19 11:55 11/09/19 11:55 11/09/19 11:55 Oxygen Flow Rate (L/min) 2 Oxygen Delivery Method Nasal Cannula Weight: 78.2 kg Body Mass Index (BMI) 27.7 Discharge Activity: Return to Normal Activity Return to work on:: 11/16/19 Weight Bearing Status: Full weight bearing Home Medications: Medications to take at Discharge Fluoxetine [Prozac] 40 mg PO DAILY 11/08/19 Thyroid,Pork [Nature-Throid] 16.25 mg PO DAILY 11/08/19 Carvedilol [Coreg] 12.5 mg PO BID #60 tab 11/09/19 Following Prescriptions Were Given to Patient: Carvedilol [Coreg] 12.5 mg PO BID #60 tab Transmission Status: Received by [facility] #30 Primary Care Physician: Abdoul Cheng DO [Primary Care Provider] - Please follow up with your Primary Care Physician in: in 1-2 Please Follow Up With: Katey Aguirre MD When: in 3 weeks Disposition: Home Minutes spent on discharge:: 31 Patient Condition:: Stable Medical Necessity - Tobacco Use Smoking Status: Never smoker Meaningful Use Info Meaningful Use Diagnoses (Choose all that apply): None applicable Inpatient E&M: 65768 Disch Hosp
== END 2019-11-09 12:18 | disposition home or self-care (01) | DRG 280 ==
LOC: ED 11:17 → PCU 14:07
PROVIDERS: Admitting Provider Internal Medicine; Emergency Provider Emergency Medicine; PCP Family Medicine; Visit Provider Internal Medicine
DX: I21.4 Non-ST elevation (NSTEMI) myocardial infarction (principal); I25.42 Coronary artery dissection; I25.10 Atherosclerotic heart disease of native coronary artery without angina pectoris; I95.9 Hypotension, unspecified; I10 Essential (primary) hypertension; R73.03 Prediabetes; F32.9 Major depressive disorder, single episode, unspecified; Z79.899 Other long term (current) drug therapy; Z96.653 Presence of artificial knee joint, bilateral
CPT/HCPCS: 36415; 71045; 80048; 80061; 81002; 84484; 85025; 85610; 85730; 93005; 93306; 93458; 99152; 99153; 99285; J7030; J7040; A4216; C1769; C1894; Q9967

== ENCOUNTER → 2019-12-13 11:00 | Outpatient (CLI) | payer BC, SELFPAY ==
[2019-12-02 09:46] VITALS: BMI 29.0
[2019-12-13 16:03] LABS: CRP < 2.90 mg/L (0.0-3.0); Rheumatoid Factor < 10.0 IU/mL (<15)
[2019-12-13 17:31] LABS: Erythrocyte Sedimentation Rate 17 mm/hr (0-30)
[2019-12-15 16:53] LABS: ANTINUCLEAR ANTIBODIES DIRECT Negative (Negative)
[2019-12-17 10:56] LABS: CCP IgG Antibodies 7 units (0-19)
== END ==
PROVIDERS: PCP Family Medicine; Visit Provider Family Medicine
DX: I25.42 Coronary artery dissection (principal); M25.50 Pain in unspecified joint
CPT/HCPCS: 36415; 85652; 86038; 86140; 86200; 86225; 86235; 86431

== ENCOUNTER → 2019-12-16 10:10 | Outpatient (CLI) | payer BC, SELFPAY ==
[2019-12-02 09:46] VITALS: BMI 29.0
--- NOTE | 2019-12-16 10:11 | CR.ITP_ITS ---
Diagnosis - General Information Admitting Diagnosis: NSTEMI, STABLE ANGINA PECTORIS Personal Learning Style:: Audio/Visual, Written Barriers to Learning: No Barriers Stage of change r/t lifestyle modifications:: Action Gave educational material for:: Treating Heart Disease, Emotions & Heart Disease, Stress Management & Relaxation, Sleep Disorders & Heart Disease, How The Heart Works, What it means to have Heart Disease, How Coronary Artery Disease is Diagnosed, Heart Procedures, What Heart Medications Do, Risk Factors & Modifications, Living an Active Life, Nutrition - Education/Goals Individual Counseling: Initial Assessment: Abnormal Cholesterol Levels, High Blood Pressure, Overweight/Obesity Cardiac Rehabilitation Goals: 1. Maintain the individual as the primary focus of care. 2. To improve the patient's quality of life. 3. Identification of cardiac risk factors and provide cardiac risk factor management. 4. Enhance the psychosocial status of the patient. 5. Reconditioning enough to allow the patient to resume customary activities. 6. Control symptoms of cardiac disease Personal Goals: Initial Assessment: Improve energy level, Participate in home exercise program, Get back to work, or to resume activities faster, Improve knowledge of cardiac disease, Improve muscle strength and endurance, Control risk factors (learn risk factor modification) Scale for measuring improvement of personal goals: Enter appropriate number in Comments. 2 = Unchanged. 3 = Slightly Better. 4 = Moderate Improvement. 5 = Met my Goal - Diagnosis & Disease Process Outcomes/Goals: Pt IDs own risk factors & lifestyle modifications by Session 10, Verbalizes symptoms of angina & response by session 3., Pt independently manages Plan/Interventions: Assist Pt to ID & engage in lifestyle modification to reduce CVD risk, Instruct on individual risk factors, Review symptoms of angina & emergency actions, Review secondary diagnosis & identify educational needs. - Safety Referral to Physical Therapy: No Referral to [facility] Case Management: No Fall Risk Assessed:: No Assistive Devices:: None Exercise - Initial Assessment - Visit Date of Eval: 12/16/19 Session #:: 0 - PRE-CARDIAC REHAB Mets: Pre-: >7 METS for 30 minutes by discharge - Physician Prescribed Exercise Modalities: Treadmill, Rower, Airdyne, NuStep Frequency: 3x/week for 12 weeks [36 sessions] Intensity: 60-80% of age predicted maximum heart rate reserve Current METSs:: 4.0 Target Heart Rate:: 102-134 Resting Blood Pressure: 142/86 EKG Type: NSR - Outcomes & Goals Goals:: Verbalizes understanding of THR, RPE & goal METS by session 6, Documents in home exercise log/reports 30 min aerobic 5 day/wk by DC, Demonstrates accurate pulse taking by DC - Intervention & Plan Exercise Program Goals: Instruct on personal THR & RPE, Instruct on MET level & personal MET goal, Show patient to take own pulse /validate performance until accurate, Instruct on home exercise - Physical Activity Home Exercise Physical Activity - Home Exercise: Safe Exercise, Warm-up, Self-monitoring, Cool-Down, Home Exercise > 30 min Daily, Sitting Time <3 hours/daily - Outcomes & Goals Outcomes/Goals: Demonstrates correct Warm-up/exercise Cool-Down (S3) if = 2.5 METs, Verbalizes symptoms of exercise intolerance by Session 3 (S3), Demonstrate safe equipment use (S3) & follows exercise prescrition (6) - Intervention & Plan Plan/Intervention: Instruct warm-up & cool-down if exercising at > 2 METs, Instruct on symptoms of exercise intolerance & actions to take, Instruct & monitor on saf, Assess intial functional capacity & safety risk Nutrition - Initial Assessment - Program Goals Nutrition Program Goals: LDL <100 optimal. 100 - 129 Near optimal. 130 - 159 Borderline High. 160 - 189 High. Total Cholesterol <200 desirable. 200 - 239 Borderline High. >/= 240 High. HDL < 40 Low >/=60 High. Triglycerides <150 desirable. <199 optimal. VlDL 5 - 40. HgbA1C <7%. BMI <25 Patient has diagnosis of Hyperlipidemia (ICD E78)?: Yes - Visit Date of Assessment:: 12/16/19 Session #:: 0 - PRE-CARDIAC REHAB - Cholesterol/Lipids Triglycerides (mg/dL): 323 - HYPERTRIGLYCERIDEMIA Total Cholesterol (mg/dL): 150 LDL Cholesterol (mg/dL): 92 HDL Cholesterol (mg/dL): 46 Determine presence & major risk factors that modify LDL goal: Hypertension or hypertensive medication, Family history of premature CHD in Male < 55 years: female <65 yearsFa, Age men > 45 years; women >/= 55 years Outcomes/Goals: Pt IDs own risk factors & lifestyle modifications by Session 10, Verbalizes symptoms of angina & response by session 3., Pt independently manages Intervention/Plan: Instruct on personal lipid levels & lipid goals/NCEP guidelines, Instruct on cholesterol Referral to dietitian:: Yes - MEDICAL NUTRITION THERAPY - Diabetes (Other Core Measures) Diabetes Type: Not Applicable - Weight Mgt (Other Care) Not Applicable: No Height: 5 ft 6 in - OVERWEIGHT Weight:: 180 lb BMI: 29.0 Diagnosis Overweight/Obesity BMI> 30% ICD-10 E66: No Diagnosis High BMI/Morbid Obesity BMI> 35% ICD-10 Z68: No Outcomes/Goals: Pt sets, maintains & shows weight loss goal & trend during rehab Intervention/Plan: Instruct on ideal BMI & set weight loss goal w/patient, Assist pt to ID & incorporate diet changes for weight loss by S9, Refer to Structured Weight Loss program as appropriate, Encourage goal of using 250- 300dcal per session for weight loss - Healthy Eating Habits Will attend diet classes:: Yes Outcomes/Goals:: Consume diet rich in vegs,fruits,whole grain/high fiber,fish,lean meat, Limit sat/trans fats,cholesterol & added salts & sugars Intervention/Plan:: Assess current eating habits - Education Gave educational materials for:: Healthy eating Medical - Initial Assessment - Visit Date of Eval: 12/16/19 Session #:: 0 - PRE-CARDIAC REHAB - Medication Compliance Preventative Medication(s):: Aspirin, Beta brigette H/O mental health issues: depression, anxiety, or addiction?: No Doesn?t believe in the benefits of treatment?: No Believes medications are unnecessary or harmful?: No Has a concern about medication side effects?: No Expresses concern over the cost of medications?: No Outcomes/Goals: Verbalizes medications,desired effect & common side effects @ DC, Pt self-reports following medication regimen, Keeps card in wallet w/medications listed by DC Interventions/plans: Instruct on medication effects & side effects, Review medication list w/patient every two weeks, Instruct importance of taking meds as ordered & assist problem solving - Tobacco Use Tobacco Use: Non-smoker - Hypertension Hypertension Diagnosis:: Hypertension ICD-10 I10 Resting Blood Pressure:: 142/86 [place] [employer] Hypertension Guidelines: [place] [employer] Hypertension Guidelines. Normal BP Less than 120/80. Elevated BP 120/80. Hypertension Stage 1: BP 130-139/80-89. Hypertesnion Stage 2: BP 140 or higher/90 or higher. Hypertension Crisis: BP higher than 180/120 Outcomes/Goals: Able to verbalize/achieve optimal blood pressure <130/80, Incorporates diet changes & exercise for blood pressure control by DC Interventions/plan: Instruct on optimal blood pressure, hypertension & medications, Instruct on effects of sodium, alcohol, stress, exercise &hypertension - Tobacco Cessation Referral Smoking Cessation Referral:: No Individual Education/Counseling:: No Education Schedule Given:: Yes Psychosocial - Initial Assess - VIsit Date of Eval: 12/16/19 Session #:: 0 - PRE-CARDIAC REHAB Not Applicable: Yes History of previous Mental disease:: No - Target Goals Target Goals: Assess presence or absence of depression. Using a valid screening tool, maximizes coping skills. Positive support system - Psychosocial Test Tool Used:: Shane Cyzone QOL Cardiac, PHQ-9 Questionnaire phq-9 Severity: Severity. 1-4 Minimal Depression. 5-9 Mild Depression. 10-14 Moderate Depression. 15-19 Moderately Sever Depression. 20-27 Severe Depression. Rule: - Referral to Behavioral Health PS - Interventions: Yes Attend Stress Management Classes, No Referral to Behavioral Health if PHQ-9 score >9:, No Referral to [facility], No Referral to Physician if PHQ-9 if score is 5-9: - Outcomes/Goals: See list Psychosocial Outcomes/Goals:: ID's personal stressors & 2 strategies to manage stress by discharge - Intervention/Plan: See List Interventions/Plan:: Assess stressors,coping strategies & signs of derpression on admission, Instruct/assist pt to develop coping & personal stress Mgt strategies, Instruct patient to recognize signs & symptoms of depression, Instruct patient to recog Patient Health Questionnaire Initial Assessment 1. Little interest or pleasure in doing things: Several days 2. Feeling down, depressed, or hopeless: Not at all 3. Trouble falling or staying asleep, or sleeping too much: Not at all 4. Feeling tired or having little energy: Several days 5. Poor appetite or overeating: Several days 6. Feeling bad about yourself -- or that you are a failure or have let yourself or your family down: Not at all 7. Trouble concentrating on things, such as reading the newspaper or watching television: Not at all 8. Moving or speaking so slowly that other people could have noticed. Or the opposite - being so fidgety or restless that you have been moving around a lot more than usual: Several days 9. Thoughts that you would be better off , or of hurting yourself in some way: Not at all How difficult have these problems made it for you to do your work, take care of things at home, or get along with other people?: Somewhat difficult Total Score: 4 MURIEL-Q SV Test - Statements CAD is a disease of the arteries in the heart: False Examples of risk factors for heart disease: True Angina is chest pain or discomfort: True The benefits of resistance training include: True Eating more meat and dairy products: False Anti-platelet medications such as aspirin are important: I Don't Know The only effective way to manage stress: False An exercise warm-up slowly increases heart rate: True Prepared, processed foods usually have high sodium: True Depression is common after a heart attack: True The statin medications lower cholesterol: True To control blood pressure, lower the amount of sodium: True If someone gets chest discomfort during walking: False Transfats are partially hydrogenated vegetable oils: True Sleep apnea that is not treated increases the risk: I Don't Know To control cholesterol, one should become a vegetarian: False Someone knows if he/she is exercising at the right level: I Don't Know Diabetes cannot be prevented with exercise & health eating: False Stress is a large risk for heart attack: True A diet that can help lower blood pressure is rich in: True - Total Score Total Correct Responses: 17 Self-Efficacy Initial Assessment We would like to know how confident you are in doing certain activities. Please select your confidence level for:: Select your confidence level for the following using the scale 1-10 where 1 is not at all confident and 10 is totally confident. Your score is the average of all 6 responses. Fatigue: How confident are you that you can keep the fatigue caused by your disease from interfering with the things you want to do? Select Number: 6 Physical Discomfort or Pain: How confident are you that you can keep the physical discomfort or pain of your disease from interfering with the things you want to do? Select Number: 6 Emotional Distress: How confident are you that you can keep the emotional distress caused by your disease from interfering with the things you want to do? Select Number: 6 Other Symptoms or Health Problems: How confident are you that you can keep other symptoms or health problems from interfering with the things you want to do? Select Number: 6 Different Tasks and Activities: How confident are you that you can do the different tasks and activities needed to manage your health condition so as to reduce your need to see a doctor? Select Number: 9 Medication: How confident are you that you can do things other than just taking medication to reduce how much your illness affects your everyday life? Select Number: 8 Total Score:: 6 Nutrition Survey - Nutrition Survey Instructions Scoring Instructions: Scoring is as follows: Yes = 1 points. No = 0 point. Patient score that is >/=12 is considered to be at potential nutritional risk and could benefit from a referral to a registered dietitian. - Nutrition Survey Initial Have you lost >10 lbs over the past 2 months without trying?: No Are you following a special diet at home for diabetes, low fat, or low salt?: No Are you interested in meeting with a dietitian for help understanding your diet?: No Do you eat less than 3 meals a day?: No Do you eat fatty meats (gamez, sausage, ribs, etc), fried foods, desserts, large amounts of salad dressings, margarine, butter, or cheese most days?: Yes Do you have food allergies? [Enter types in comment field]: No Do you eat in restaurants more than 3 times a week?: No Do you season food with salt, seasoning salt, or garlic salt?: No Do you used canned, boxed, frozen meals, or soups, seasoning packets?: No Total Score:: 1
--- NOTE | 2019-12-16 10:11 | PCM.CR.HP2 ---
CR - History & Physical - General Arrival date:: 12/16/19 Arrival time:: 10:00 Date of Referral:: 12/02/19 Date of CR Evaluation:: 12/16/19 Referring Physician: DR. HARLEY Primary Diagnosis: NSTEMI - History of Present Cardiac Event Onset Date: Enter Onset Date of cardiac illnesses in Comment field below Current stable Angina Pectoris:: Yes - 11/08/2019 Acute Myocardial Infarction within 12 months:: Yes - NSTEMI 11/08/2019 Type of Symptoms:: thursday evening after grandchildren left began with chest pressure and under the left arm, chest pain and left arm. - Medications Home Medications: Ambulatory Orders Medication Instructions Recorded Fluoxetine [Prozac] 40 mg PO DAILY 11/08/19 carvedilol 12.5 mg tablet 12.5 mg PO BID #60 tab 12/02/19 thyroid (pork) 16.25 mg tablet 90 mg PO DAILY tab 12/02/19 - Allergies Allergies/Adverse Reactions: Allergies Sulfa (Sulfonamide Antibiotics) Allergy (Verified 12/02/19 09:45) Rash - Sleep Disorder Evaluation Hx of Sleep Apnea: No Do you snore loudly (louder than talking or can be heard through closed doors)?: Yes - had a sleep test done a year ago and it was negative, it related to her history of sinusitis and rhinitis. Do you often feel tired/ fatigued/ sleepy during daytime?: No Has anyone observed you stop breathing during sleep?: No History of Hypertension (for STOP score): Yes STOP Results: Positive Advanced Directives - Advanced Directives Power of Senior Systems Engineer: No Living Will: No Advance Directives Information Provided: Yes Advance Directives on File: No DNR Order?:: No - MOLST See MOLST form: No Past Medical History - Covid-19 Screening Fever: No Unexplained muscle aches: No Current respiratory symptoms: No Upper respiratory infections symptoms: No Gastro-intestinal symptoms: No Eeg-Reqw-Senrzq symptoms: No Has tested positive for COVID-19 in last 30 days: No Had contact w/person w/symptoms or Covid-19 (+) last 14 days: No Has High Risk Exposures ID'd by Health dept/Inf Control team: No 65 years or older:: No Lives in Assisted Living facility:: No Has a chronic lung disease or moderate to severe asthma:: No Has a serious heart condition:: No Immunocompromised:: No Severely obese (Body Mass Index of 40 or higher):: No Diabetic:: No Has chronic kidney disease undergoing dialysis:: No - Past Medical Illness Medical History: Past Medical History (Last Updated 12/16/19 @ 10:37 by Adrián Murrieta CRT, PREVENTIVE MAINTENANCE ENGINEER, BS) Primary hypertriglyceridemia (Chronic) E78.1 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 Social History - Smoking History Smoking Status: Never smoker Hx Tobacco Use: No Hx Smoking Exposure: No - Alcohol Use Alcohol Usage: No - Substance Abuse Hx Substance Use: No - Occupation Occupation (List type of work in comments):: Employed - Hobbies, Recreation, Social Activities Hobbies: Other - grandchildren, alot of gardening, cooking, very active in the christian. Recreational Activities: I am able to engage in all my recreational activities - to do alot of activities but rellay has been limited by the knee and bunions., I can hardly do any recreational activities Social Environment - Status Marital Status: - Current Living Arrangements Living Environment:: Spouse - Children How many children do you have?: 4 Do any of your children live nearby?: Yes - two the medical center one in [facility] other in [place]. - Safety Do you feel safe in your surroundings?: Yes - Assistance Do you need any assistance at home?: no Review of Systems - Review of Systems Hints: Right click = Denies (Slash). Left click = Reports ([place]) Review of Present Symptoms: Reports: Fatigue - take a nap daily., Appetite - Normal, Appetite - Special Diet - Nutrition Counselor, restrict sugar, take natural remedies for cholesterol. Minimized alot of grain.. Denies: Shortness of Breath at Rest, Shortness of Breath with Exertion, Angina, Dizziness/Lightheadedness, Heart Arrhythmia/Irregularities - Pain Is Patient Pain Free?: No Pain Location: lower extremity - Right knee partial replacement, left knee total replacement, feet. PATIENT HAS A HARD TIME WALKING. Risk Factor Assessment - Chief Complaint Chief Complaint: KIM IS A 64/F OF DR. HARLEY WHO PRESENTS TO CARDIAC REHAB TODAY FOLLOWING A RECENT NSTEMI EVENT ON 11/08/2019. PATIENT STILL EXPERIENCING STABLE ANGINA PECTORIS. - Vital Signs Temperature: 97.7 F Respiratory Rate: 14 Pulse Ox: 96 Blood Pressure: 142/86 Nailbeds:: PINKL - Pulse Pulse Rate: 76 Pulse Rhythm: Regular - Hypertension Blood Pressure Sitting - Left Arm: 142/86 - Blood Cholesterol/Lipids Total Cholesterol (mg/dL) Goal = less than 200 mg/dL: 150 - 11/09/2019 HDL Cholesterol (mg/dL) Goal = less than 40 mg/dL: 46 LDL Cholesterol (mg/dL) Goal = less than 70 mg/dL: 92 Triglycerides (mg/dL) Goal = less than 150 mg/dL: 323 - Diabetes Nutrition Referral for Diabetes: No - Obesity Height: 5 ft 6 in Weight:: 180 lb Weight in Pounds: 180.0 lbs Weight Source: Standing Scale Body Mass Index (BMI): 29.0 Desired Body Weight: LOSS OF 5% Realistic Weight Goal (Loss of 1-2 lbs/week): 170 Nutritional Referral for Obesity: Yes - Physical Inactivity Physical Inactivity: Reg Exercise 30 min/day, Physically demanding job, Recreational activity - Risk Stratification Risk Guidelines: Lowest Risk: Risk Factor for Smoking, Risk Factor for Diabetes, Risk Factor for Sedentary Lifestyle, Risk Factor for Depression, Moderate Risk: Risk Factor for Dyslipidemia, Risk Factor for Obesity, Risk Factor for Hypertension - 142/84 - For Smoking Smoking Risk Guidelines: Smoking Low Risk: None or quit greater than 6 months ago. Smoking Moderate Risk: Smoker or quit 6 months or less ago. Smoking High Risk: Smoker - For Dyslipidemia Dyslipidemia Risk Guidelines: Low Risk: Moderate Risk: High Risk: 15-25% fat 25.1-29% fat >/= 30% fat. <7% sat fat 7-9% sat fat >9% sat fat. <150 mg chol 150-299 mg chol >/= 300 mg chol. LDL <100 LDL 100-129 LDL >/= 130. Chol/HDL ratio <5.0 Chol/HDL ratio 5.0-6.0 Chol/HDL ratio >6.0. Triglycerides <100 Triglycerides 100-149 Triglycerides >/= 150 - For Diabetes Mellitus Diabetes Risk Guidelines: Diabetes Low Risk: HgA1c <6.5% and/or FBG <120. Diabetes Moderate Risk: HgA1c 6.6-7.9% and/or FBG 120-180. Diabetes High Risk: HgA1c >/= 8% and/or FBG >180 - For Obesity/Overweight Obesity/Overweight Risk Guidelines: Obesity Low Risk: BMI <25.0. Obesity Moderate Risk: BMI 25-29.9. Obesity High Risk: BMI >/= 30.0 - For Hypertension Hypertension Risk Guidelines: Hypertension Low Risk: Systolic <120 and Diastolic <80. Hypertension Moderate Risk: Systolic 120-139 and Diastolic 80-89. Hypertension High Risk: Systolic >/= 140 and Diastolic >/= 90 - For Sedentary Lifestyle Sedentary Lifestyle Risk Guidelines: Sedentary Lifestyle Low Risk: >/= 1,500 kcal/week. Sedentary Lifestyle Moderate Risk: 700-1,499 kcal/week. Sedentary Lifestyle High Risk: < 700 kcal/week - For Depression Depression Risk Guidelines: Depression Low Risk: Not clinically depressed. Depression Moderate Risk: Mildly depressed. Depression High Risk: Clinically depressed Motivation - Motivation to Participate On a scale of 1 to 10, how prepared are you to commit to attending program?: 7 - intersted in the exercise What do you see as barriers to successfully being able to complete the program?: right knee is partial replacement and really gives me alot of issues. What do you see as the benefits of succesfully completing the program? In other words, what do you hope to get out of participating in the program?: muscle and exercise tolerace stamina Are there issues you are dealing with that will interfere with completing the program?: knee Do you have a spouse or signficant other, family or friends who will help support you to complete the program?: yes.
[2019-12-16 10:31] VITALS: BP 142/86; BMI 29.0
[2019-12-16 10:50] VITALS: BP 142/86; PULSE 76; RESP 14; TEMP 36.5; O2SAT 96; BMI 29.0
== END ==
PROVIDERS: PCP Family Medicine; Referring Provider Specialist; Visit Provider Specialist
DX: I10 Essential (primary) hypertension (principal); E78.1 Pure hyperglyceridemia

== ENCOUNTER → 2019-12-29 09:53 | Outpatient (CLI) | payer BC, SELFPAY ==
[2019-12-16 10:31] VITALS: BMI 29.0
[2019-12-16 10:50] VITALS: BMI 29.0
[2019-12-29 11:01] LABS: Absolute Lymphocyte Count 0.99 X10^3/uL (0.83-4.51); Absolute Neutrophil Count 2.4 X10^3/uL (2.0-7.7); Basophil# 0.03 X10^3/uL; Basophil% 0.7 % (0-1); Eosinophil# 0.53 X10^3/uL; Eosinophils% 11.9 % (0-5); Hematocrit 43.1 % (37-47); Lymphocyte # 0.99 X10^3/ul (4.0); Lymphocyte % 22.2 % (19-41); Mean Corp Hgb Conc 32.5 g/dL (32-36); Mean Corpuscular Hgb 29.2 pg (27.0-32.0); Mean Corpuscular Volume 89.8 fL (81-99); Mean Platelet Vol. 9.3 fl (6.2-12.0); Monocyte# 0.46 X10^3/uL; Monocyte% 10.3 % (0-10); NRBC Flagged by Analyzer 0 % (0-5); Neutrophil # 2.44 X10^3/uL (2.7-7.7); Neutrophil % 54.7 % (47-70); Platelet Count 270 K/mm3 (150-450); RBC Distribution Width SD 42.9 fl (35.1-43.9); White Blood Count 4.5 K/mm3 (4.4-11.0)
[2019-12-29 11:04] LABS: Erythrocyte Sedimentation Rate 5 mm/hr (0-30)
[2019-12-29 11:35] LABS: CRP < 2.90 mg/L (0.0-3.0)
== END ==
PROVIDERS: PCP Family Medicine; Referring Provider Specialist; Visit Provider Specialist
DX: Z96.651 Presence of right artificial knee joint (principal)
CPT/HCPCS: 36415; 85025; 85652; 86140

== ENCOUNTER → 2019-12-30 14:44 | Outpatient (CLI) | payer BC, SELFPAY ==
[2019-12-16 10:31] VITALS: BMI 29.0
[2019-12-16 10:50] VITALS: BMI 29.0
[2019-12-30 16:13] LABS: Creatinine, Serum 0.81 mg/dL (0.55-1.02); EST Glomerular Filtration Rate 76 mL/min (>60); Est Glom Filt Rate - Afr Amer 92 mL/min (>60)
== END ==
PROVIDERS: PCP Family Medicine; Referring Provider Specialist; Visit Provider Specialist
DX: M25.561 Pain in right knee (principal); Z96.651 Presence of right artificial knee joint
CPT/HCPCS: 36415; 82565

== ENCOUNTER 2020-01-04 11:30 | Outpatient (RCR) | payer BC, SELFPAY ==
[2019-12-16 10:31] VITALS: BMI 29.0
[2019-12-16 10:50] VITALS: BMI 29.0
== END 2020-01-09 23:59 ==
LOC: CR 11:30
PROVIDERS: PCP Family Medicine; Referring Provider Specialist; Visit Provider Specialist
DX: I25.2 Old myocardial infarction (principal)
CPT/HCPCS: 93798

== ENCOUNTER → 2020-01-16 17:41 | Outpatient (CLI) | payer BC, SELFPAY ==
[2019-12-16 10:31] VITALS: BMI 29.0
[2019-12-16 10:50] VITALS: BMI 29.0
[2020-01-13 09:22] VITALS: BMI 28.3
--- NOTE | 2020-01-16 18:01 | CT_ITS ---
STUDY: RIGHT LOWER EXTREMITY CT SCAN REASON FOR EXAM: Female, 64 years old. RIGHT KNEE REPLACEMENT RADIATION DOSAGE (If Supplied By Facility): CTDIvol = ( 17.74 ) mGy, DLP = ( 1158.90 ) mGycm. Individualized dose optimization techniques were used for this CT.? TECHNIQUE: Axial multidetector CT scan of the right lower extremity. Coronal and sagittal reformatted images. COMPARISON: X-ray dated 01/20/2011. FINDINGS: Mild joint space narrowing at the right hip. Spurring at the right greater trochanter/gluteal tendons. Status post medial compartment arthroplasty. Surgical hardware intact/well aligned. Extensive geode formation at the lateral femoral condyle, tibial midline and lateral tibial plateau with mild fragmentation (sagittal image 19 series 605). Mild joint space narrowing at the lateral compartment. Mild patellofemoral joint space narrowing. Large volume knee joint effusion. Small popliteal cyst. Mild soft tissue swelling. Proximal tibiofibular joint arthrosis. Mild tibiotalar joint arthrosis. Plantar spur. Achilles enthesophyte. No acute fracture. No acute dislocation. No acute bone destruction. CT/Extremity Lower without Contra IMPRESSION: Advanced right knee osteoarthritis with large geode formation Mild right hip osteoarthritis Mild right ankle osteoarthritis Right knee medial compartment arthroplasty Large volume right knee joint effusion, small popliteal cyst and mild soft tissue swelling Electronically Signed: Jose Antonio Caldwell DO at 13:37 EST Tel , Service support ,
== END ==
PROVIDERS: PCP Family Medicine; Referring Provider Specialist; Visit Provider Specialist
DX: T84.032A Mechanical loosening of internal right knee prosthetic joint, initial encounter (principal)
CPT/HCPCS: 73700

== ENCOUNTER 2020-01-27 11:30 | Outpatient (RCR) | payer BC, SELFPAY ==
[2019-12-16 10:31] VITALS: BMI 29.0
[2019-12-16 10:50] VITALS: BMI 29.0
--- NOTE | 2020-01-13 09:12 | CR.ITP_ITS ---
Exercise - 30-day Assessment - Visit Date of Eval: 01/13/20 Session #:: 5 - Physician Prescribed Exercise Modalities: NuStep, SciFit Frequency: 3x/week for 12 weeks [36 sessions] Intensity: 60-80% of age predicted maximum heart rate reserve Current METSs:: 4 Target Heart Rate:: 102-134 Current RPE:: 11-12 Maximum Excercise HR:: 96 Resting Blood Pressure: 124/78 Maximum Exercise Blood Pressure: 130/80 EKG Type: NSR - Outcomes & Goals Goals:: Verbalizes understanding of THR, RPE & goal METS by session 6, Documents in home exercise log/reports 30 min aerobic 5 day/wk by DC, Demonstrates a ccurate pulse taking by DC, Other additional outcome/goals: see below - Intervention & Plan Exercise Program Goals: Instruct on personal THR & RPE, Instruct on MET level & personal MET goal, Show patient to take own pulse /validate performance until accurate, Instruct on home exercise, Other additional plan/int - 30-day Reassessments 30 day Reassessments:: Progressing - Physical Activity Home Exercise Physical Activity - Home Exercise: Safe Exercise, Warm-up, Self-monitoring, Co ol-Down, Home Exercise > 30 min Daily, Sitting Time <3 hours/daily - Outcomes & Goals Outcomes/Goals: Demonstrates correct Warm-up/exercise Cool-Down (S3) if = 2.5 METs, Verbalizes symptoms of exercise intolerance by Session 3 (S3), Demonstrate safe equipment use (S3) & follows exercise prescrition (6), Other: See below - Intervention & Plan Plan/Intervention: Instruct warm-up & cool-down if exercising at > 2 METs, Instruct on symptoms of exercise intolerance & actions to take, Instruct & monitor on saf, Assess intial functional capacity & safety risk, Other See below - 30-day Reassessments 30 day Reassessments:: Progressing Nutrition - 30-Day Assessment - Program Goals Nutrition Program Goals: LDL <100 optimal. 100 - 129 Near optimal. 130 - 159 Borderline High. 160 - 189 High. Total Cholesterol <200 desirable. 200 - 239 Borderline High. >/= 240 High. HDL < 40 Low >/=60 High. Triglycerides <150 desirable. <199 optimal. VlDL 5 - 40. HgbA1C <7%. BMI <25 Patient has diagnosis of Hyperlipidemia (ICD E78)?: Yes - Visit Date of Assessment:: 01/13/20 Session #:: 5 - Cholesterol/Lipids Determine presence & major risk factors that modify LDL goal: Hypertension or hypertensive medication, Low HDL cholesterol <40 mg/dL*, Family history of premature CHD in Male < 55 years: female <65 yearsFa, Age men > 45 years; women >/= 55 years Outcomes/Goals: Pt IDs own risk factors & lifestyle modifications by Session 10, Verbalizes symptoms of angina & response by session 3., Pt independently manages, Other Additional Outcomes/Goals: Intervention/Plan: Advocate for lipid panel cholesterol medication if applicable, Instruct on personal lipid levels & lipid goals/NCEP guidelines, Instruct on cholesterol, Other additional plan/int 30-day Reassessments:: Progressing - Diabetes (Other Core Measures) Diabetes Type: Not Applicable - Weight Mgt (Other Care) Height: 5 ft 6 in Weight:: 79.742 kg BMI: 28.3 Diagnosis Overweight/Obesity BMI> 30% ICD-10 E66: No Diagnosis High BMI/Morbid Obesity BMI> 35% ICD-10 Z68: No Intervention/Plan: Instruct on ideal BMI & set weight loss goal w/patient, Assist pt to ID & incorporate diet changes for weight loss by S9, Refer to Structured Weight Loss program as appropriate, Encourage goal of using 250- 300dcal per session for weight loss, Other additional plan/interventions 30 day Reassessments:: Progressing - Healthy Eating Habits Will attend diet classes:: Yes Outcomes/Goals:: Consume diet rich in vegs,fruits,whole grain/high fiber,fish,lean meat, Limit sat/trans fats,cholesterol & added salts & sugars, Other additional outcome/goals: Intervention/Plan:: Assess current eating habits, Other Additional plan/interventions 30-day Reassessments:: Progressing Medical - Initial Assessment - Visit Date of Eval: 01/13/20 Session #:: 5 - Medication Compliance Preventative Medication(s):: Aspirin, Beta brigette H/O mental health issues: depression, anxiety, or addiction?: No Doesn?t believe in the benefits of treatment?: No Believes medications are unnecessary or harmful?: No Has a concern about medication side effects?: No Expresses concern over the cost of medications?: No Outcomes/Goals: Verbalizes medications,desired effect & common side effects @ DC, Pt self-reports following medication regimen, Keeps card in wallet w/medications listed by DC, Other additional outcome/goals: Interventions/plans: Instruct on medication effects & side effects, Review medication list w/patient every two weeks, Instruct importance of taking meds as ordered & assist problem solving, Other additional - Tobacco Use Tobacco Use: Non-smoker Do you use smokeless tobacco?: No - Hypertension Hypertension Diagnosis:: Hypertension ICD-10 I10 Resting Blood Pressure:: 124/78 [place] [employer] Hypertension Guidelines: [place] [employer] Hypertension Guidelines. Normal BP Less than 120/80. Elevated BP 120/80. Hypertension Stage 1: BP 130-139/80-89. Hypertesnion Stage 2: BP 140 or higher/90 or higher. Hypertension Crisis: BP higher than 180/120 Peak Exercise Blood Pressure:: 130/80 Outcomes/Goals: Able to verbalize/achieve optimal blood pressure <130/80, Incorporates diet changes & exercise for blood pressure control by DC, Other additional outcomes/goals Interventions/plan: Instruct on optimal blood pressure, hypertension & medications, Instruct on effects of sodium, alcohol, stress, exercise &hypertension, Other additional plan/interventions Medical- 30-Day Assessment - Visit Date of Eval: 01/13/20 Session #:: 5 - Medication Compliance Preventative Medication(s):: Aspirin, Beta brigette H/O mental health issues: depression, anxiety, or addiction?: No Doesn?t believe in the benefits of treatment?: No Believes medications are unnecessary or harmful?: No Has a concern about medication side effects?: No Expresses concern over the cost of medications?: No Outcomes/Goals: Verbalizes medications,desired effect & common side effects @ DC, Pt self-reports following medication regimen, Keeps card in wallet w/medications listed by DC, Other additional outcome/goals: 30-day Reassessments:: Progressing - Tobacco Use Tobacco Use: Non-smoker Do you use smokeless tobacco?: No 30-day Reassessments:: Progressing - Hypertension Hypertension Diagnosis:: Hypertension ICD-10 I10 Resting Blood Pressure:: 124/78 [place] [employer] Hypertension Guidelines: [place] [employer] Hypertension Guidelines. Normal BP Less than 120/80. Elevated BP 120/80. Hypertension Stage 1: BP 130-139/80-89. Hypertesnion Stage 2: BP 140 or higher/90 or higher. Hypertension Crisis: BP higher than 180/120 Peak Exercise Blood Pressure:: 130/80 Outcomes/Goals: Able to verbalize/achieve optimal blood pressure <130/80, Incorporates diet changes & exercise for blood pressure control by DC, Other additional outcomes/goals Interventions/plan: Instruct on optimal blood pressure, hypertension & medications, Instruct on effects of sodium, alcohol, stress, exercise &hypertension, Other additional plan/interventions 30 day Reassessments:: Progressing Psychosocial - 30-Day Assess - VIsit Date of Eval: 01/13/20 Session #:: 5 History of previous Mental disease:: No - Target Goals Target Goals: Assess presence or absence of depression. Using a valid screening tool, maximizes coping skills. Positive support system - Psychosocial Test phq-9 Severity: Severity. 1-4 Minimal Depression. 5-9 Mild Depression. 10-14 Moderate Depression. 15-19 Moderately Sever Depression. 20-27 Severe Depression. Rule: - 30-day Reassessments: 30 day Reassessments:: Progressing Patient Health Questionnaire 30-Day Re-eval Assessment 1. Little interest or pleasure in doing things: Several days 2. Feeling down, depressed, or hopeless: Not at all 3. Trouble falling or staying asleep, or sleeping too much: Not at all 4. Feeling tired or having little energy: Several days 5. Poor appetite or overeating: Several days 6. Feeling bad about yourself -- or that you are a failure or have let yourself or your family down: Not at all 7. Trouble concentrating on things, such as reading the newspaper or watching television: Not at all 8. Moving or speaking so slowly that other people could have noticed. Or the opposite - being so fidgety or restless that you have been moving around a lot more than usual: Several days 9. Thoughts that you would be better off , or of hurting yourself in some way: Not at all How difficult have these problems made it for you to do your work, take care of things at home, or get along with other people?: Somewhat difficult Total Score: 4 Self-Efficacy 30-Day Re-eval Assessment We would like to know how confident you are in doing certain activities. Please select your confidence level for:: Select your confidence level for the following using the scale 1-10 where 1 is not at all confident and 10 is totally confident. Your score is the average of all 6 responses. Fatigue: How confident are you that you can keep the fatigue caused by your disease from interfering with the things you want to do? Select Number: 6 Physical Discomfort or Pain: How confident are you that you can keep the physical discomfort or pain of your disease from interfering with the things you want to do? Select Number: 6 Emotional Distress: How confident are you that you can keep the emotional distress caused by your disease from interfering with the things you want to do? Select Number: 6 Other Symptoms or Health Problems: How confident are you that you can keep other symptoms or health problems from interfering with the things you want to do? Select Number: 6 Different Tasks and Activities: How confident are you that you can do the different tasks and activities needed to manage your health condition so as to reduce your need to see a doctor? Select Number: 9 Medication: How confident are you that you can do things other than just taking medication to reduce how much your illness affects your everyday life? Select Number: 8 Total Score:: 6
[2020-01-13 09:22] VITALS: BP 124/78; BP 130/80; BMI 28.3
[2020-01-27 12:44] LABS: Absolute Lymphocyte Count 1.24 X10^3/uL (0.83-4.51); Absolute Neutrophil Count 3.4 X10^3/uL (2.0-7.7); Basophil# 0.02 X10^3/uL; Basophil% 0.4 % (0-1); Eosinophils% 5.6 % (0-5); Hematocrit 40.9 % (37-47); Hemoglobin 13.5 g/dL (12.0-15.0); Lymphocyte # 1.24 X10^3/ul (4.0); Lymphocyte % 23.1 % (19-41); Mean Corpuscular Hgb 29.2 pg (27.0-32.0); Mean Corpuscular Volume 88.5 fL (81-99); Mean Platelet Vol. 8.9 fl (6.2-12.0); Monocyte# 0.39 X10^3/uL; Monocyte% 7.3 % (0-10); NRBC Flagged by Analyzer 0 % (0-5); Neutrophil % 63.4 % (47-70); Platelet Count 259 K/mm3 (150-450); RBC Distribution Width CV 13.1 % (11.6-14.6); RBC Distribution Width SD 42.5 fl (35.1-43.9); Red Blood Count 4.62 M/mm3 (4.2-5.4); White Blood Count 5.4 K/mm3 (4.4-11.0)
[2020-01-27 13:13] LABS: Albumin, Serum 3.6 g/dL (3.2-5.0); Anion Gap 7 (5-15); BUN 23 mg/dL (7-18); BUN/Creat Ratio 31.5 RATIO (10-20); Calcium,Total 9.1 mg/dL (8.5-10.1); Chloride 106 mmol/L (98-107); Creatinine, Serum 0.73 mg/dL (0.55-1.02); EST Glomerular Filtration Rate 86 mL/min (>60); Est Glom Filt Rate - Afr Amer 104 mL/min (>60); Glucose 87 mg/dL (74-106); Sodium Level 139 mmol/L (136-145)
== END 2020-02-09 23:59 ==
LOC: CR 11:30
PROVIDERS: PCP Family Medicine; Referring Provider Specialist; Visit Provider Specialist
DX: I25.2 Old myocardial infarction (principal)
CPT/HCPCS: 36415; 80048; 82040; 85025; 87081; 93798

== ENCOUNTER 2020-02-01 11:02 | Inpatient (IN) | payer BC, SELFPAY ==
[2019-12-16 10:31] VITALS: BMI 29.0
[2019-12-16 10:50] VITALS: BMI 29.0
[2020-01-13 09:22] VITALS: BMI 28.3
--- NOTE | 2020-01-16 16:41 | HP.PCM_ITS ---
History and Physical History and Physical [facility] Patient Name: Sonia Murray : 1955 From: PATY ALLEN PA-C DATE OF SURGERY: 02/01/2020 SCHEDULED PROCEDURE: revision right unicompartmental knee replacement to a total knee arthroplasty HISTORY OF PRESENT ILLNESS: Preoperative history and physical exam was performed on January 16, 2020. This is a 64-year-old female who has had ongoing pain for the past 4 months. She states this initially occurred after a day of hiking. She has history of a medial unicompartmental knee replacement by Dr. Reagan Giles on February 25, 2006. She has also had a left total knee arthroplasty by Dr. Reagan Giles on January 20, 2011. She states her pain can retain/10 with activities. She has to use a crutch for ambulatory assistance. She did have a MRI which did reveal lateral compartment osteoarthritis with subchondral cyst formation consistent with ostial lysis and particulate disease. Sitting. Pain is over the medial aspect of the knee which extends around to the lateral joint. He does wake her at night. She has had inflammatory lab work with normal CRP and ESR. She has attempted nonsteroidal anti-inflammatories. Patient has medical history with recent heart attack in September 2019. She is currently being followed by Dr. Aguirre who is her broadcast meteorologist. We are getting surgical clearance from the broadcast meteorologist in the primary care physician Dr. Cheng. She denies any recent chest pain, shortness of breath, fevers chills, or recent infections. After failing conservative measures and discussing treatment options with Dr. Zhang Zambrano, the patient does wish to proceed with a revision right unicompartmental knee replacement to a total knee arthroplasty. REVIEW OF SYSTEMS: ROS: Const: Reports fatigue, but denies anorexia, anxiety, change in appetite, fever and weight change,hard of hearing, and vision problems. CV: Denies chest pain, heart murmur, irregular heartbeat and peripheral vascular disease. Resp: Reports asthma and wheezing, but denies cough, pneumonia, sleep apnea, SOB and tuberculosis. GI: Denies constipation, diarrhea, heartburn, nausea, bloody stools and vomiting, and difficulty swallowing. : Urinary: reports incontinence. Musculo: Denies leg swelling, trouble walking and weakness and limp. Skin: Reports eczema, but denies Raynaud's, history of shingles and tattoo. Neuro: Denies ambulatory dysfunction, dizziness, numbness/tingling and tremor. Psych: Reports depression and memory loss, but denies anxiety, insomnia, mental illness and stress. Juan Antonio/Lymph: Denies anemia, bleeding/bruising tendency and past transfusion. Reviewed, no changes. PAST MEDICAL HISTORY: Advance Care Plan: No Advance Directives Effective Date: 11/01/2019 PMH: Medical Problems: High Blood Pressure, Asthma, Sinus Trouble Heart Attack - september Accidents: None Surgical Hx: Tonsillectomy - AND ADNOIDS D & C - 1985 Unicompartmental Right Knee - (02/25/2006) DR. GILES, [facility] LT TKR - (01/20/2011) [email or web address] Anesthesia Complications: Nausea, Dizziness Assistive Devices: Glasses Reviewed and updated. SOCIAL HISTORY: SH: Marital: .Occupation: Homemaker.Work Status: Housewife.Hand Dominance: Right-handed. Personal Habits: Cigarette Use: Never Smoked Cigarettes.Alcohol: Denies use.Drug Use: Denies Use.Enjoy Exercising: Exercises 1-3 X/Week. Reviewed, no changes. VITALS: Ht: 66 Wt: 176lb Wt [id number] BMI: 28.4 BP: 129/79 Pulse: 73 Resp: 16 T: 96.3 T: 35.7C Pain Level: 4 ALLERGIES: Sulfa - Rash Cortisone - Rash, Irregular Heart Rate Latex MEDICATIONS: Fluoxetine HCL (PMDD) 20 mg 2 caps per daily, Nature-Throid 16.25 mg 1 tablet per day, Ibuprofen 200 200 mg 1-2po bid, prn, Carvedilol 12.5 mg 1po bid, Aspirin 81 81 mg 1 pill 2x/day by mouth PRE-OP EXAM: General appearance:NORMAL Other: Eyes: Conjunctivae and lids: NORMAL Pupils: ERR Ears, Nose, Mouth, and Throat: NORMAL Other: Inspection of lips, teeth and gums: NORMAL Other: Neck: Examination of neck: no masses noted. Respiratory: Assessment of respiratory effort: NORMAL Other: Auscultation of lungs: clear to auscultation no wheezes, rhonchi or rales. Cardiovascular: Auscultation of heart: regular rate and rhythm, no murmurs, gallops or rubs. Exam of carotid arteries: NORMAL Other: Gastrointestinal: Exam of abdomen: soft, nontender, nondistended bowel sounds present. PHYSICAL EXAMINATION: Patient does walk with an antalgic gait currently using crutches. Right knee has large effusion. There is tenderness to palpation of the medial and lateral joint line. Previous incision is well healed with no erythema. Patient is able to get 119 flexion. Stable to varus/valgus stress test. Sensation intact to light touch. IMAGING STUDIES: X-rays of the right knee reveal progressive lucencies around the tibial baseplate and posterior femoral implant. Patient has developed a more apparent cysts in the lateral femoral condyle and tibial spine. Which are consistent with large cyst in the lateral compartment with lateral compartment degenerative disease with meniscus tearing. There is significant synovitis. 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 IMPRESSION: 1. Painful right unicompartmental knee replacement 2. Hypertension 3. Recent heart attack September 2019 4. Asthma PLAN: Dr. Zhang Zambrano did discuss and review with the patient all treatment options including surgical versus nonsurgical options. Patient does wish to proceed with the above-stated procedure. Potential risks, benefits, and complications of the procedure were discussed in detail including but not limited to , infection, nerve and blood vessel damage, persistent pain, numbness, tingling, paresthesias, blood clot, pulmonary embolism, and requirement for possible further surgery. The patient expressed full understanding and has no further questions for the doctor. Patient does agree to proceed with the above-stated procedure and has signed the surgery consent form. We discussed the current risks associated with COVID 19. This does include the risk of exposure while in the hospital. Patient was reassured local hospitals have low infection rates and are taking all necessary precautions to avoid exposure to patients. In addition, we discussed strategies that can be used to help limit exposure including those that limit the patient's time in the hospital. Also using strategies to limit the patient's need for continued inpatient services after being discharged from the hospital. Patient was notified that we will need to comply with any screening or testing the hospital wishes to perform or that surgery may be delayed for any positive results. This dictation was created using voice recognition software. Phonetic and/or grammatical errors may exist. ___ I have re-examined the patient. There are no clinical changes since date of exam. ___ See progress notes for changes. ___ Dictated on admission Date: Time: Signature:
[2020-01-18 11:02] LABS: Absolute Lymphocyte Count 1.29 X10^3/uL (0.83-4.51); Absolute Neutrophil Count 2.8 X10^3/uL (2.0-7.7); Basophil# 0.02 X10^3/uL; Basophil% 0.4 % (0-1); Eosinophils% 8.2 % (0-5); Hematocrit 42.9 % (37-47); Hemoglobin 13.8 g/dL (12.0-15.0); Lymphocyte # 1.29 X10^3/ul (4.0); Lymphocyte % 26.6 % (19-41); Mean Corp Hgb Conc 32.2 g/dL (32-36); Mean Corpuscular Hgb 28.8 pg (27.0-32.0); Mean Corpuscular Volume 89.4 fL (81-99); Mean Platelet Vol. 8.8 fl (6.2-12.0); Monocyte# 0.36 X10^3/uL; Monocyte% 7.4 % (0-10); NRBC Flagged by Analyzer 0 % (0-5); Neutrophil # 2.77 X10^3/uL (2.7-7.7); Neutrophil % 57.2 % (47-70); Platelet Count 287 K/mm3 (150-450); RBC Distribution Width CV 12.9 % (11.6-14.6); RBC Distribution Width SD 42.6 fl (35.1-43.9); White Blood Count 4.9 K/mm3 (4.4-11.0)
[2020-01-18 11:24] LABS: Anion Gap 4 (5-15); BUN 17 mg/dL (7-18); BUN/Creat Ratio 23.7 RATIO (10-20); Calcium,Total 9.2 mg/dL (8.5-10.1); Chloride 104 mmol/L (98-107); Creatinine, Serum 0.72 mg/dL (0.55-1.02); EST Glomerular Filtration Rate 87 mL/min (>60); Est Glom Filt Rate - Afr Amer 106 mL/min (>60); Glucose 92 mg/dL (74-106); Potassium 4.1 mmol/L (3.5-5.1); Sodium Level 137 mmol/L (136-145)
[2020-01-18 16:42] LABS: Magnesium 2.1 mg/dL (1.6-2.6)
[2020-02-01] VITALS (11 sets, daily range): BP systolic 103–150; BP diastolic 59–90; PULSE 72–85; RESP 16–18; TEMP 36.1–36.9; O2SAT 93–99; BMI 28.0
[2020-02-01] MEDS: Scopolamine 1mg/72hr Patch 1 PATCH TD ×2 (11:00→11:47)
[2020-02-01] MEDS: Lactated Ringers 1,000 ML 999 ML IV ×2 (11:46→16:20)
[2020-02-01] MEDS: Acetaminophen 500 MG Tablet 1000 MG PO ×2 (11:47→21:29)
[2020-02-01] MEDS: Gabapentin 600 MG Tablet PO (11:47)
[2020-02-01 12:05] LABS: Bedside Glucose 134 mg/dL (70-110)
[2020-02-01] MEDS: Lactated Ringers 1,000 ML 125 ML IV ×2 (13:00→19:19)
[2020-02-01] MEDS: Cefazolin 2 GM in 0.9% Normal Saline 100 ML IV (13:10)
[2020-02-01] MEDS: dexAMETHasone 10 MG/ML Vial IV (13:15)
[2020-02-01] MEDS: Lactated Ringers 1,000 ML 75 ML IV (13:45)
--- NOTE | 2020-02-01 15:15 | RAD_ITS ---
STUDY: X-RAY - RIGHT KNEE REASON FOR EXAM: Female, 64 years old. post op robot revision TECHNIQUE: 2 view(s) of the knee. COMPARISON: Preoperative 16 January 2020. FINDINGS: There is expected appearance of total knee arthroplasty with postsurgical interstitial gas. Surgical incision is outlined by skin alfie. There are no unexpected radiopaque foreign bodies. RAD/Knee 1 or 2 Views IMPRESSION: Expected early acute postoperative total knee arthroplasty. Electronically Signed: Daniel Arnett, at 16:39 EST Tel , Service support ,
[2020-02-01] MEDS: Joint Pain Solution (NO KETOROLAC) 100 ML IV (15:16)
--- NOTE | 2020-02-01 15:17 | PCM.OPRPT ---
Report of Operation Date of Procedure: 02/01/20 Pre-Operative Diagnosis: Painful right medial compartment partial knee replacement with large tibial and femoral cysts Post-Operative Diagnosis: Painful right medial compartment partial knee replacement with large tibial and femoral cysts Surgery/Procedure Performed:: Revision right total knee replacement entire femoral and tibial components Description of Surgical Findings:: Stable well-balanced knee. Patient had large posterior lateral femoral condyle incision which required augmentation and was packed with bone graft. Patient had large central cyst of the tibia. The tibial cyst membrane was sent for pathology. machine programmer: Dakotah Pineda Type of Anesthesia:: Spinal Anesthesiologist: Abhijeet Hammer Special Medications: 2 g Ancef, 1 g TXA at incision, 1 g TXA closure, 10 mg Decadron, joint cocktail (5 mg Duramorph, 30 mL of 0.5% Ropivicaine, 1000 units of epinephrine, 30 mg of Toradol) Specimen's removed: 3 separate specimens were sent to microbiology. Tibial cyst was sent to pathology. Estimated Blood Loss (mL): 75 Fluids Replaced: 1600 mL crystalloid Description of Procedure: Implants used: 1. Renovo size 3 triathlon total stabilized femoral component with 15 x 50 mm stem and 10 mm posterior lateral augment 2. Renovo size 3 press-fit universal tibial baseplate with 5 mm medial augment and 12 x 50 mm stem 3. Renovo X3 11 mm PS polyethylene 4. Trena X3 35 mm asymmetric patella Brief history operative indications: 64-year-old F with history of progression of right knee osteoarthritis with radiographic findings with loss of joint space, osteophyte formation and subchondral sclerosis status post medial compartment partial knee replacement. Patient also had large cysts and evidence of aseptic loosening. Failed conservative measures as mentioned in the H&P. Discussion of total knee arthroplasty as well as risk and benefits were discussed the patient including but not limited to blood loss, DVTs, PEs, neurovascular damage, general risk of anesthesia including loss of life, and stiffness or instability were discussed with patient. Patient demonstrated understanding and was able to sign informed consent. Procedure: On the date of procedure patient's right lower extremity was marked in the preoperative area. The patient was then taken back to the operating room where the patient was placed on the table in the supine position. All bony prominences were identified a well-padded. Anesthesia assumed control of the C-spine and airway and remained controlled throughout the remainder of the procedure. A tourniquet was placed on the right upper thigh and the leg was prepped in a sterile fashion. The surgeon then scrubbed at this time .Upon reentering the room right lower extremity was draped in a standard orthopedic fashion. A timeout was then called and everyone agreed upon the side, the site, the procedure to be performed, patient's identity and antibiotics given. Esmarch bandage was used to exsanguinate the extremity and the tourniquet was placed up to 250 mmHg with the knee in flexion. A midline skin incision was made and sharp dissection was taken down through skin subcutaneous tissue and fat. The standard medial parapatellar incision was made and the patella was subluxed laterally. An Appropriate deep MCL release was done and the fat pad was resected. A complete synovectomy was performed and then our attention was directed towards the reconstruction. Our attention was then directed to the patella. The patella was everted and a flat resection was made. The knee was then flexed up in 2 femoral pins were placed inside the incision and 2 tibial pins were placed outside the incision in the medial tibia bicortically. Once this was completed the 2 checkpoints in the femur and tibia were placed. Knee was then flexed up and the bony landmarks were registered. Once this was completed knee was taken through range of motion and manually stressed allowing us to a plan for an appropriate femoral and tibial cuts. After balancing the knee we then removed the femoral component using an osteotome. After the femoral component was removed we remove the tibial component using an osteotome. The robotic arm was brought into the field sterilely and checkpoint and saw were registered. Based on the patient's deformity the tibial cut was made 3 degrees varus. After we made our initial cut based on the bone loss from the previous partial replacement a 5 mm augment cut was made on the medial tibial plateau. Based on the patient's ligamentous tension appropriate adjustments were made to the operative plan and ligament releases were done. Once we were happy with our operative plan with balanced flexion and extension gaps our attention was directed to the femur. The robot was brought into the field sterilely and registered. Posterior condylar cuts, anterior chamfer cuts and anterior cuts were appropriately made for a size 3 femur. When these were completed the saws were switched out in the distal femoral and posterior chamfer cuts were made. Protecting the soft tissue throughout this time. A size 3 tibial base plate was selected. the knee was flexed to 90 degrees and the soft tissues and posterior osteophytes were removed from the joint. 40 cc of the periarticular injection was injected into the posterior medial corner of the joint. Integrating the lateral flexion gap we did note that there was a large cyst in the distal femoral condyle laterally. This communicated with our cut. This was a contained defect. This was carefully curetted out down to good bone. Based on the 2 cm depth we elected to make a 10 mm augment cut. This was done by adjusting the robot plan and then readjusting back to the original plan to check final balancing. At this point we prepared the tibia and femur canals for stem trials and the box cut was made for the TS implant. The appropriate trials were then placed on the femur and tibia. A trial polyethylene was trialed to ensure proper balancing and stability of the knee. The appropriate tibial internal rotation was then marked with a bovie. Our attention was then directed to the patella. The lug holes were drilled and the patella trial was placed. Patellar tracking was checked and deemed appropriate. Once we were happy lug holes were drilled for the femur and trial components were removed. the tibia was subluxed and pinned into place and the keel was punched and drilled appropriately. Final components were verified and opened, and cement was mixed in a vacuum. Syntervention Simplex cement was used. The wound was copiously irrigated with normal saline. When the cement was ready the components were cemented into place starting with the tibia, femur and finally cementing the patella. The trial poly component was placed and the knee was placed in full extension. All excess cement was removed in the process. Once the cement had cured the tracking, alignment and balance were verified and a size 11 mm PS polyethylene component was placed. Once the final components were placed an Irrisept lavage was performed and the wound was copiously irrigated with normal saline solution and the periarticular injection was given. The wound was closed in a layer jones fashion using #1 vicryl interrupted sutures for the arthrotomy, 2-0 interrupted Vicryl suture for the subcuticular layer and alfie for final skin closure. A sterile compressive dressing was then placed. The patient was then awakened from anesthesia, transferred to the [facility] and transferred to the PACU for recovery. Post op plan DVT ppx: ASA 81mg BID, thigh high compression stockings Follow up: in office in 2 weeks for wound check PT: to start POD #0 at hospital, outpatient PT should be arranged. My physician radiology assistant was a vital part of this case. He was important in appropriate retraction during the case, and protection of soft tissues during bony cuts. His intimate knowledge of the case and my steps aided in safe and expedient completion of the procedure as well as appropriate position of the leg during the case. He was also vital in assisting with closure under my direct supervision. Due to the complexity of this case robotic arm was used to assist in the surgery to improve accuracy and clinical outcomes. - Complications No intraoperative complications - Admit VTE Documentation VTE Present on Admission: No VTE Mechan Device Prophylaxis: SCD's, Thigh High AMANDA Hose VTE Pharm Prophylaxis ordered?: Yes
--- NOTE | 2020-02-01 18:36 | PCS.PANDOC ---
PANDEMIC DOCUMENTATION INITIATED: Date: 02/01/2020 Time: 8186
[2020-02-01] MEDS: Carvedilol 12.5 MG Tablet PO (18:48)
[2020-02-01] MEDS: Aspirin 81 MG TAB.CHEW PO (18:48)
[2020-02-01] MEDS: oxyCODONE 5 MG Tablet PO (18:53)
--- NOTE | 2020-02-01 20:23 | PCM.PROGNOTE ---
Subjective: Patient was seen and examined today at request of orthopedic surgery for medical management after undergoing a revision of right total knee replacement. Patient's chronic medical problems include osteoarthritis, essential hypertension, chronic depression, and a recent spontaneous coronary artery dissection with an acute non-STEMI. Patient was examined postop and she appeared in no distress, she was wearing nasal cannula oxygen but did not complain of any shortness of breath. Patient's was in the room during the time of my examination. - Physical Exam Vitals/I&O's: Vital Signs Temp Pulse Resp BP Pulse Ox 97.8 F 79 16 109/66 93 02/01/20 19:24 02/01/20 19:24 02/01/20 19:24 02/01/20 19:24 02/01/20 19:24 Oxygen Flow Rate (L/min) 2 Oxygen Delivery Method Nasal Cannula Weight: 79 kg Body Mass Index (BMI) 28.0 Intake and Output for Last 24 Hours 01/30/20 01/31/20 02/01/20 23:59 23:59 23:59 Intake Total 4439.17 / 4439.17 Balance 4439.17 / 4439.17 General: Alert, Oriented x3, Cooperative, No apparent distress, Well developed, Well nourished HEENT: Atraumatic, PERRLA, EOMI, Normocephalic Oral: Moist Mucosa Neck: Supple, No JVD, Trachea Midline, Thyroid Normal Size and Texture Lungs: Clear to auscultation, Normal air movement, No rhonchi, No wheeze, No rales Cardiovascular: Regular rate, Regular Rhythm, Normal S1, Normal S2, No murmurs, PMI Normal, No rub noted Abdomen: Bowel Sounds Present, Soft, Non Tender, Non-Distended Extremities: No clubbing, No cyanosis, Capillary Refill Less than 3 Seconds Skin: No rashes Neurological: Cranial nerves II-XII grossly intact, Neuro grossly intact, Sensory exam intact to light touch and pain, Coordination normal Psych/Mental Status: Normal Affect, Appropriate, Alert and oriented to time, place, person, mood and affect Microbiology Past 72 Hours 01/31/20 08:30 Interface Orders SARS-CoV-2 Antigen (Rapid) - Final Laboratory Results 02/01/20 11:28: POC Glucose 134 H Current Medications Acetaminophen (Acetaminophen 500 Mg Tablet) 1,000 mg PO Q8 [facility] Aspirin (Aspirin 81 Mg [facility].Chew) [facility] Last Admin: 02/01/20 18:48 Dose: 81 mg Documented by: Carvedilol (Carvedilol 12.5 Mg Tablet) [facility] Last Admin: 02/01/20 18:48 Dose: 12.5 mg Documented by: Doxycycline Monohydrate (Doxycycline 100 Mg Capsule) 100 mg PO BID [facility] Enteral Nutritional Formula (Ensure Surgery 237 Ml Liquid) 237 ml PO TIDCM [facility] Last Admin: 02/01/20 18:55 Dose: Not Given Documented by: Famotidine (Famotidine 20 Mg Tablet) 20 mg PO DAILY [facility] Fluoxetine HCl (Fluoxetine 20 Mg Capsule) 40 mg PO DAILY [facility] Lactated Ringer's () 1,000 mls @ 125 mls/hr IV .Q8H [facility] Last Admin: 02/01/20 19:19 Dose: 125 mls/hr Documented by: Cefazolin Sodium () 1 gm in 50 mls @ 150 mls/hr IV Q8H [facility] Stop: 02/02/20 05:19 Ketorolac Tromethamine (Ketorolac 15 Mg/Ml Vial) 15 mg IV Q6H PRN PRN PRN Reason: Pain Score 1-5 Magnesium Chloride (Magnesium Chloride 64 Mg Delay Rel.Tablet) [facility] Morphine Sulfate (Morphine 2 Mg/Ml Syringe) 2 - 4 mg IV Q2H PRN PRN PRN Reason: Pain Score 6-10 Morphine Sulfate (Morphine 4 Mg/Ml Syringe) 2 - 4 mg IV Q2H PRN PRN PRN Reason: Pain Score 6-10 Multivitamins/Minerals (Multivitamin (Healthy Eyes) Capsule) 2 capsule [facility] Ondansetron HCl (Ondansetron 4 Mg/2 Ml Vial) 4 mg IV Q8H PRN PRN PRN Reason: NAUSEA Oxycodone HCl (Oxycodone 5 Mg Tablet) 5 - 10 mg PO Q4H PRN PRN PRN Reason: Pain Score 4-10 Last Admin: 02/01/20 18:53 Dose: 5 mg Documented by: Potassium Phos/Sodium Phos (Na Biphos/Potassium Phosphate Packet) 1 packet PO DAILY [facility] Promethazine HCl (Promethazine 25 Mg/Ml Syringe) 12.5 mg IM Q6H PRN PRN; Protocol PRN Reason: NAUSEA/VOMITING Senna/Docusate Sodium (Senna/Docusate Sodium 1 Tablet) 2 tablet PO BID [facility] Sodium Chloride (0.9% Saline Lock 10 Ml Syringe) 10 - 40 ml IV UD PRN PRN Reason: SALINE FLUSH Medical Necessity - Tobacco Use Smoking Status: Never smoker Tobacco Use: Non-smoker Assessment/Plan All Active Problems (Last Updated 12/16/19 @ 10:37 by Adrián Murrieta, LINE SERVICE PERSON, MANUAL MACHINIST, BS) Acute chest pain (Resolved) Acute coronary syndrome with high troponin (Resolved) #1 essential hypertension-patient is currently on carvedilol #2 chronic depression-patient is on Prozac #3 hypothyroidism #4 osteoarthritis-postop day 0 revision of right total knee replacement #5 primary hypertriglyceridemia #6 recent spontaneous dissection of coronary artery-patient has been seen recently by cardiology Inpatient E&M: 34857 Subs Hosp L2
[2020-02-01] MEDS: Cefazolin 1 GM/50 ML BAG IV (21:27)
[2020-02-01] MEDS: Doxycycline 100 MG CAPSULE PO (21:29)
[2020-02-01] MEDS: Senna/Docusate Sodium 1 Tablet 2 TABLET PO (21:30)
[2020-02-02 01:29] VITALS: BP 112/64; PULSE 79; RESP 18; TEMP 36.8; O2SAT 97
[2020-02-02] MEDS: Cefazolin 1 GM/50 ML BAG IV (04:01)
[2020-02-02] MEDS: Acetaminophen 500 MG Tablet 1000 MG PO ×3 (05:39→21:23)
[2020-02-02 05:45] VITALS: BP 122/63; PULSE 75; RESP 16; TEMP 36.7; O2SAT 93
[2020-02-02] MEDS: oxyCODONE 5 MG Tablet PO ×4 (05:48→21:28)
[2020-02-02 05:55] LABS: Hematocrit 34.1 % (37-47); Mean Corp Hgb Conc 32.3 g/dL (32-36); Mean Corpuscular Hgb 28.9 pg (27.0-32.0); Mean Corpuscular Volume 89.5 fL (81-99); Mean Platelet Vol. 9.1 fl (6.2-12.0); Platelet Count 226 K/mm3 (150-450); RBC Distribution Width CV 13.1 % (11.6-14.6); RBC Distribution Width SD 42.6 fl (35.1-43.9); Red Blood Count 3.81 M/mm3 (4.2-5.4); White Blood Count 7.7 K/mm3 (4.4-11.0)
[2020-02-02 06:19] LABS: Anion Gap 2 (5-15); BUN 15 mg/dL (7-18); BUN/Creat Ratio 20.5 RATIO (10-20); Calcium,Total 8.8 mg/dL (8.5-10.1); Chloride 106 mmol/L (98-107); Creatinine, Serum 0.73 mg/dL (0.55-1.02); EST Glomerular Filtration Rate 86 mL/min (>60); Est Glom Filt Rate - Afr Amer 103 mL/min (>60); Glucose 116 mg/dL (74-106); Potassium 4.3 mmol/L (3.5-5.1); Sodium Level 138 mmol/L (136-145)
[2020-02-02 07:40] VITALS: O2SAT 93
--- NOTE | 2020-02-02 07:47 | PCM.PN.ORT ---
Subjective: The patient was sitting in bedside chair upon examination. Patient denies any chest pain, shortness of breath, dizziness, lightheadedness, nausea or vomiting, or calf pain. Pain is controlled on medications. No adverse overnight events. Overall patient is doing well. They did have to change the distal pin site dressing due to drainage. There is been no significant drainage from the main incision. Patient's pain has been controlled on medications. Objective: Vital signs stable and afebrile. Patient is able to plantarflex and dorsiflex actively. Sensation is intact to light touch to saphenous, sural, superficial and deep peroneal, and tibial distribution. ABD dressing was removed and there is no active drainage from the main incision or distal pin site incision. Minimal dried blood on the main incision ABD. The proximal pin site dressing is clean dry and intact. Negative Homans bilaterally, negative signs and symptoms of DVT. - Physical Exam Vitals/I&O's: Vital Signs Temp Pulse Resp BP Pulse Ox 98.1 F 75 16 122/63 H 93 02/02/20 05:45 02/02/20 05:45 02/02/20 05:45 02/02/20 05:45 02/02/20 05:45 Oxygen Flow Rate (L/min) 2 Oxygen Delivery Method Room Air Weight: 79 kg Body Mass Index (BMI) 28.0 Intake and Output for Last 24 Hours 01/31/20 02/01/20 02/02/20 23:59 23:59 23:59 Intake Total 4755.84 / 5355.84 2362.83 / 2362.83 Output Total 1900 / 1900 Balance 4755.84 / 4355.84 462.83 / 462.83 General: Alert, Oriented x3, Cooperative, No apparent distress Microbiology Past 72 Hours 01/31/20 08:30 Interface Orders SARS-CoV-2 Antigen (Rapid) - Final Laboratory Results 02/01/20 11:28: POC Glucose 134 H 02/02/20 05:25: WBC 7.7, RBC 3.81 L, Hgb 11.0 L, Hct 34.1 L, MCV 89.5, MCH 28.9, MCHC 32.3, RDW Std Deviation 42.6, RDW Coeff of Mary 13.1, Plt Count 226, MPV 9.1 02/02/20 05:25: Sodium 138, Potassium 4.3, Chloride 106, Carbon Dioxide 30.0, Anion Gap 2 L, BUN 15, Creatinine 0.73, Estim Creat Clear Calc 74.80, Est GFR (MDRD) Af Amer 103, Est GFR (MDRD) Non-Af 86, BUN/Creatinine Ratio 20.5 H, Glucose 116 H, Calcium 8.8 Current Medications Acetaminophen (Acetaminophen 500 Mg Tablet) 1,000 mg PO Q8 [facility] Last Admin: 02/02/20 05:39 Dose: 1,000 mg Documented by: Aspirin (Aspirin 81 Mg Tab.Chew) [facility] Last Admin: 02/01/20 18:48 Dose: 81 mg Documented by: Carvedilol (Carvedilol 12.5 Mg Tablet) 12.[facility] Last Admin: 02/01/20 18:48 Dose: 12.5 mg Documented by: Doxycycline Monohydrate (Doxycycline 100 Mg Capsule) 100 mg PO BID [facility] Last Admin: 02/01/20 21:29 Dose: 100 mg Documented by: Enteral Nutritional Formula (Ensure Surgery 237 Ml Liquid) 237 ml PO TIDCM [facility] Last Admin: 02/01/20 18:55 Dose: Not Given Documented by: Famotidine (Famotidine 20 Mg Tablet) 20 mg PO DAILY [facility] Fluoxetine HCl (Fluoxetine 20 Mg Capsule) 40 mg PO DAILY [facility] Ketorolac Tromethamine (Ketorolac 15 Mg/Ml Vial) 15 mg IV Q6H PRN PRN PRN Reason: Pain Score 1-5 Magnesium Chloride (Magnesium Chloride 64 Mg Delay Rel.Tablet) [facility] Morphine Sulfate (Morphine 2 Mg/Ml Syringe) 2 - 4 mg IV Q2H PRN PRN PRN Reason: Pain Score 6-10 Morphine Sulfate (Morphine 4 Mg/Ml Syringe) 2 - 4 mg IV Q2H PRN PRN PRN Reason: Pain Score 6-10 Multivitamins/Minerals (Multivitamin (Healthy Eyes) Capsule) [facility] Ondansetron HCl (Ondansetron 4 Mg/2 Ml Vial) 4 mg IV Q8H PRN PRN PRN Reason: NAUSEA Oxycodone HCl (Oxycodone 5 Mg Tablet) 5 - 10 mg PO Q4H PRN PRN PRN Reason: Pain Score 4-10 Last Admin: 02/02/20 05:48 Dose: 5 mg Documented by: Potassium Phos/Sodium Phos (Na Biphos/Potassium Phosphate Packet) 1 packet PO DAILY [facility] Promethazine HCl (Promethazine 25 Mg/Ml Syringe) 12.5 mg IM Q6H PRN PRN; Protocol PRN Reason: NAUSEA/VOMITING Senna/Docusate Sodium (Senna/Docusate Sodium 1 Tablet) 2 tablet PO BID [facility] Last Admin: 02/01/20 21:30 Dose: 2 tablet Documented by: Sodium Chloride (0.9% Saline Lock 10 Ml Syringe) 10 - 40 ml IV UD PRN PRN Reason: SALINE FLUSH Medical Necessity - Tobacco Use Smoking Status: Never smoker Tobacco Use: Non-smoker Assessment/Plan All Active Problems (Last Updated 12/16/19 @ 10:37 by Adrián Murrieta, RESEARCH PSYCHOLOGIST, LAYOUT OPERATOR, BS) Acute chest pain (Resolved) Acute coronary syndrome with high troponin (Resolved) 1. S/P revision right total knee replacement POD #1 2. Continue Pain Medications: Tylenol and oxycodone 3. DVT Prophylaxis: Take 81 mg aspirin twice daily for 4 weeks postoperatively for DVT prophylaxis 4. PT/OT: Weightbearing as tolerated 5. H & H: 11.0/34.1, asymptomatic. Postoperative anemia secondary to acute blood loss from surgery without any intra operative complications. 6. Continue antibiotics while following cultures: Currently on doxycycline 1 week postoperatively. Cultures are currently pending 7. Continue postoperative medical management per medicine 8. Encouraged Incentive Spirometry 8. Disposition: Plan will be for possible discharge home today depending upon how patient does with formal physical therapy and if there is no significant drainage from the incisions. Prescriptions will be E scribed to [facility]. Patient has outpatient physical therapy established. She will follow-up per postop instructions. Patient may require an additional stay depending upon how she manages with physical therapy and possible drainage. If there is no drainage with the physical therapy we will then place a silver Mepilex dressing in which patient will use for 5 days postoperatively. I have reviewed the [place] Automated Rx Reporting System (OARRS) report for this patient for refill pattern and other prescriber involvement as part of the appropriate surveillance for the provision of acute and chronic controlled medications. The report was requested and reviewed on the date of this entry and was considered in the prescribing process.
--- NOTE | 2020-02-02 07:59 | DCINST_ITS ---
Discharge Diet: No Restrictions Discharge Activity: May Not Drive May shower in (days): 1 - Okay to shower if dressing is intact to skin. Turn dressing away from water. Do not submerge underwater for 6 weeks postoperatively. Ice area for (Minutes): 20 - every hour while awake. Weight Bearing Status: Weight bearing as tolerated Elevate: Operative Extremity Additional Activity Instructions:: Wear elastic stockings for 2 weeks after your surgery. Call your doctor if your incision/area has: Continuous Slow Oozing, Sudden Increased Bleeding, Increased Pain/ Swelling, Increased Redness, Foul Smelling Discharge Call your doctor if you observe: Fever of 101 or Higher, Coldness, Increased Pain, Numbness or Tingling, Change in Color, Calf discomfort, Uncontrolled pain Remove Dressing in (days):: 4 - Okay to remove dressing on February 06, 2020 Additional Instructions: Follow [facility] Post-op Instructions. Once postoperative dressing has been removed only use gentle soap and water over the incision. Do not use any ointments, Neosporin, salves, alcohol pads over the incision for 6 weeks postoperatively. Do not submerge underwater for 6 weeks postoperatively. Allergies/Adverse Reactions: Allergies Sulfa (Sulfonamide Antibiotics) Allergy (Verified 02/01/20 11:50) Rash Medications to take at Discharge Fluoxetine [Prozac] 40 mg PO DAILY 11/08/19 Carvedilol 12.5 mg PO BID 01/18/20 Cyanocobalamin/Folic Acid [Vitamin F28-Orvug Acid Tablet] 2 ea PO DAILY 01/18/20 Glu-Sugar Balance 1 tab PO TID 01/18/20 Magnesium 250 mg PO DAILY 01/18/20 Sod Phos Di, Vance/K Phos Vance [Phosphorous 250 mg Tablet] 250 mg PO DAILY 01/18/20 Vitamin B Complex 1 ea PO BID 01/18/20 Acetaminophen [Tylenol] 1,000 mg PO Q8 #100 tab 02/02/20 Aspirin [Aspirin, Baby] 81 mg PO BIDCM #60 tab 02/02/20 Doxycycline 100 mg PO BID #14 cap 02/02/20 Oxycodone [Oxyir] 5 - 10 mg PO Q4H PRN PRN 5 Days #60 tab 02/02/20 Senna/Docusate Sodium [Senokot-S] 2 tab PO BID #14 tab 02/02/20 The following prescriptions were given: Aspirin [Aspirin, Baby] 81 mg PO BIDCM #60 tab Transmission Status: Received by [facility] Doxycycline 100 mg PO BID #14 cap Transmission Status: Received by [facility] Oxycodone [Oxyir] 5 - 10 mg PO Q4H PRN PRN 5 Days #60 tab PRN Reason: Pain Score 4-10 Transmission Status: Received by [facility] Senna/Docusate Sodium [Senokot-S] 2 tab PO BID #14 tab Transmission Status: Received by [facility] Acetaminophen [Tylenol] 1,000 mg PO Q8 #100 tab Transmission Status: Received by [facility] Primary Care Physician: Abdoul Cheng DO [Primary Care Provider] - Test Results: Test results from this visit will be discussed in further detail at your follow- up appointment, if applicable. Please Follow Up With: Physical Therapy When: 02/06/20 @ 9:00 with Ken Please Follow Up With: Dakotah Pineda PA-C When: 02/15/20 @ 9:00 am
[2020-02-02 08:20] VITALS: BP 113/68; PULSE 74; RESP 18; TEMP 36.7; O2SAT 99
[2020-02-02] MEDS: Famotidine 20 MG Tablet PO (08:36)
[2020-02-02] MEDS: Magnesium Chloride 64 MG Delay Rel.Tablet PO (08:36)
[2020-02-02] MEDS: Carvedilol 12.5 MG Tablet PO ×2 (08:36→17:36)
[2020-02-02] MEDS: Aspirin 81 MG TAB.CHEW PO ×2 (08:36→17:36)
[2020-02-02] MEDS: Doxycycline 100 MG CAPSULE PO ×2 (08:36→21:28)
[2020-02-02] MEDS: FLUoxetine 20 MG Capsule 40 MG PO (08:37)
[2020-02-02] MEDS: Senna/Docusate Sodium 1 Tablet 2 TABLET PO ×2 (08:37→21:28)
[2020-02-02] MEDS: Multivitamin (Healthy Eyes) Capsule 2 CAP PO (08:45)
[2020-02-02] MEDS: Ensure Surgery 237 ML LIQUID PO ×3 (08:45→17:34)
[2020-02-02] MEDS: Na Biphos/Potassium Phosphate PACKET 1 PACKET PO (08:45)
--- NOTE | 2020-02-02 11:15 | CASEMGMT ---
ANA SHAH REAL ESTATE ACQUISITION ANALYST CM to room to meet with patient for initial transition planning/care coordination assessment. ANA SHAH introduced self and role at [facility]. Pt voices understanding and consents to assessment at this time. Pt resting in bed in no distress at this time. Pt is A/O at this time and answers all questions appropriately. Care providers, pharmacy, and demographics verified/updated at this time. PCP: Dr Cheng Specialists: Dr Zambrano--ortho, Dr Aguirre-cardiology, Dr Gibson--podiatry Preferred Pharmacy: [facility] Retail Insurance: [employer] Prescription Benefit: Yes, but has a high deductible Living Will/HPOA: Has both LW and Healthcare POA, who is her , Ortega. LNOK: , Ortega. 4 kids Living Arrangements: Lives w/her in one-story home w/basement. 2 steps to enter. Independent prior to surgery. supportive and able to help. Transportation: Pt drove prior to surgery. will take her home @ d/c DME: has the following DME: BSC, raised toilet seat, grab bars, walker, polar care. getting a shower chair for her. Pt states no need for further DME at this time. HHC/SNF: No history of either. No needs identified. Pt wishes to return home w/OP therapy @ [facility] and states has no concerns with going home at time of discharge. CM to follow for any discharge planning/needs. Pt voices no concerns/needs at this time. Advised pt to ask for CM if any questions/concerns/needs arise. Voices understanding. PLAN: Home w/OP therapy @ [facility] Beth STEVENSON RN, CM
[2020-02-02 14:00] VITALS: BP 110/64; PULSE 76; RESP 16; TEMP 36.7; O2SAT 93
--- NOTE | 2020-02-02 16:12 | PCM.PROGNOTE ---
Subjective: Patient was seen and examined today, she is not on any oxygen presently and appears comfortable. Objective: General: Alert, Oriented x3, Cooperative, No apparent distress, Well developed, Well nourished HEENT: Atraumatic, PERRLA, EOMI, Normocephalic Oral: Moist Mucosa Neck: Supple, No JVD, Trachea Midline, Thyroid Normal Size and Texture Lungs: Clear to auscultation, Normal air movement, No rhonchi, No wheeze, No rales Cardiovascular: Regular rate, Regular Rhythm, Normal S1, Normal S2, No murmurs, PMI Normal, No rub noted Abdomen: Bowel Sounds Present, Soft, Non Tender, Non-Distended Extremities: No clubbing, No cyanosis, Capillary Refill Less than 3 Seconds Skin: No rashes Neurological: Cranial nerves II-XII grossly intact, Neuro grossly intact, Sensory exam intact to light touch and pain, Coordination normal Psych/Mental Status: Normal Affect, Appropriate, Alert and oriented to time, place, person, mood and affect - Physical Exam Vitals/I&O's: Vital Signs Temp Pulse Resp BP Pulse Ox 98.0 F 76 16 110/64 93 02/02/20 14:00 02/02/20 14:00 02/02/20 14:00 02/02/20 14:00 02/02/20 14:00 Oxygen Flow Rate (L/min) 2 Oxygen Delivery Method Room Air Weight: 79 kg Body Mass Index (BMI) 28.0 Intake and Output for Last 24 Hours 01/31/20 02/01/20 02/02/20 23:59 23:59 23:59 Intake Total 4755.84 / 5355.84 2862.83 / 2862.83 Output Total 1900 / 1900 Balance 4755.84 / 4355.84 962.83 / 962.83 Microbiology Past 72 Hours 02/01/20 Unknown Tissue - Knee Gram Stain - Final 02/01/20 Unknown Tissue - Knee Wound Culture - Preliminary No growth-Final to follow 02/01/20 Unknown Tissue - Knee Gram Stain - Final 02/01/20 Unknown Tissue - Knee Wound Culture - Preliminary No growth-Final to follow 02/01/20 Unknown Tissue - Knee Gram Stain - Final 02/01/20 Unknown Tissue - Knee Wound Culture - Preliminary No growth-Final to follow 02/01/20 Unknown Tissue - Knee Gram Stain - Final 02/01/20 Unknown Tissue - Knee Wound Culture - Preliminary No growth-Final to follow 01/31/20 08:30 Interface Orders SARS-CoV-2 Antigen (Rapid) - Final Laboratory Results 02/02/20 05:25: WBC 7.7, RBC 3.81 L, Hgb 11.0 L, Hct 34.1 L, MCV 89.5, MCH 28.9, MCHC 32.3, RDW Std Deviation 42.6, RDW Coeff of Mary 13.1, Plt Count 226, MPV 9.1 02/02/20 05:25: Sodium 138, Potassium 4.3, Chloride 106, Carbon Dioxide 30.0, Anion Gap 2 L, BUN 15, Creatinine 0.73, Estim Creat Clear Calc 74.80, Est GFR (MDRD) Af Amer 103, Est GFR (MDRD) Non-Af 86, BUN/Creatinine Ratio 20.5 H, Glucose 116 H, Calcium 8.8 Current Medications Acetaminophen (Acetaminophen 500 Mg Tablet) 1,000 mg PO Q8 [facility] Last Admin: 02/02/20 14:02 Dose: 1,000 mg Documented by: Aspirin (Aspirin 81 Mg Tab.Chew) 81 mg PO BIDCM [facility] Last Admin: 02/02/20 08:36 Dose: 81 mg Documented by: Carvedilol (Carvedilol 12.5 Mg Tablet) 12.5 mg PO BIDCM [facility] Last Admin: 02/02/20 08:36 Dose: 12.5 mg Documented by: Doxycycline Monohydrate (Doxycycline 100 Mg Capsule) 100 mg PO BID [facility] Last Admin: 02/02/20 08:36 Dose: 100 mg Documented by: Enteral Nutritional Formula (Ensure Surgery 237 Ml Liquid) 237 ml PO TIDCM [facility] Last Admin: 02/02/20 11:37 Dose: 237 ml Documented by: Famotidine (Famotidine 20 Mg Tablet) 20 mg PO DAILY [facility] Last Admin: 02/02/20 08:36 Dose: 20 mg Documented by: Fluoxetine HCl (Fluoxetine 20 Mg Capsule) 40 mg PO DAILY [facility] Last Admin: 02/02/20 08:37 Dose: 40 mg Documented by: Ketorolac Tromethamine (Ketorolac 15 Mg/Ml Vial) 15 mg IV Q6H PRN PRN PRN Reason: Pain Score 1-5 Magnesium Chloride (Magnesium Chloride 64 Mg Delay Rel.Tablet) [facility] Last Admin: 02/02/20 08:36 Dose: 64 mg Documented by: Morphine Sulfate (Morphine 2 Mg/Ml Syringe) 2 - 4 mg IV Q2H PRN PRN PRN Reason: Pain Score 6-10 Morphine Sulfate (Morphine 4 Mg/Ml Syringe) 2 - 4 mg IV Q2H PRN PRN PRN Reason: Pain Score 6-10 Multivitamins/Minerals (Multivitamin (Healthy Eyes) Capsule) [facility] Last Admin: 02/02/20 08:45 Dose: 2 capsule Documented by: Ondansetron HCl (Ondansetron 4 Mg/2 Ml Vial) 4 mg IV Q8H PRN PRN PRN Reason: NAUSEA Oxycodone HCl (Oxycodone 5 Mg Tablet) 5 - 10 mg PO Q4H PRN PRN PRN Reason: Pain Score 4-10 Last Admin: 02/02/20 15:25 Dose: 10 mg Documented by: Potassium Phos/Sodium Phos (Na Biphos/Potassium Phosphate Packet) 1 packet PO DAILY [facility] Last Admin: 02/02/20 08:45 Dose: 1 packet Documented by: Promethazine HCl (Promethazine 25 Mg/Ml Syringe) 12.5 mg IM Q6H PRN PRN; Protocol PRN Reason: NAUSEA/VOMITING Senna/Docusate Sodium (Senna/Docusate Sodium 1 Tablet) 2 tablet PO BID [facility] Last Admin: 02/02/20 08:37 Dose: 2 tablet Documented by: Sodium Chloride (0.9% Saline Lock 10 Ml Syringe) 10 - 40 ml IV UD PRN PRN Reason: SALINE FLUSH Medical Necessity - Tobacco Use Smoking Status: Never smoker Tobacco Use: Non-smoker Assessment/Plan All Active Problems (Last Updated 12/16/19 @ 10:37 by Adrián Murrieta, TAX CONSULTANT, [employer] SOLUTION ARCHITECT, BS) Acute chest pain (Resolved) Acute coronary syndrome with high troponin (Resolved) #1 essential hypertension-patient is currently on carvedilol #2 chronic depression-patient is on Prozac #3 hypothyroidism #4 osteoarthritis-postop day 1 revision of right total knee replacement #5 primary hypertriglyceridemia #6 recent spontaneous dissection of coronary artery-patient has been seen recently by cardiology Patient remains medically stable at this time Inpatient E&M: [id number] [facility] Hosp L2
[2020-02-02 20:05] VITALS: BP 139/64; PULSE 80; RESP 16; TEMP 36.8; O2SAT 93
[2020-02-03 03:00] VITALS: BP 128/74; PULSE 77; RESP 17; TEMP 36.7; O2SAT 93
[2020-02-03 03:35] VITALS: BP 122/69; PULSE 81; RESP 18; TEMP 37.5; O2SAT 93
[2020-02-03] MEDS: Acetaminophen 500 MG Tablet 1000 MG PO (06:02)
[2020-02-03] MEDS: oxyCODONE 5 MG Tablet PO (06:03)
[2020-02-03 06:08] LABS: Hemoglobin 10.6 g/dL (12.0-15.0); Mean Corp Hgb Conc 32.1 g/dL (32-36); Mean Corpuscular Hgb 28.9 pg (27.0-32.0); Mean Corpuscular Volume 89.9 fL (81-99); Platelet Count 198 K/mm3 (150-450); RBC Distribution Width CV 13.2 % (11.6-14.6); RBC Distribution Width SD 43.6 fl (35.1-43.9); Red Blood Count 3.67 M/mm3 (4.2-5.4); White Blood Count 7.4 K/mm3 (4.4-11.0)
[2020-02-03 07:24] VITALS: O2SAT 93
[2020-02-03] MEDS: Ensure Surgery 237 ML LIQUID PO (07:57)
[2020-02-03] MEDS: Carvedilol 12.5 MG Tablet PO (07:59)
[2020-02-03] MEDS: Aspirin 81 MG TAB.CHEW PO (07:59)
[2020-02-03] MEDS: Multivitamin (Healthy Eyes) Capsule 2 CAP PO (07:59)
[2020-02-03] MEDS: Magnesium Chloride 64 MG Delay Rel.Tablet PO (08:01)
[2020-02-03 08:56] VITALS: BP 115/68; PULSE 80; RESP 18; TEMP 37; O2SAT 94
[2020-02-03] MEDS: FLUoxetine 20 MG Capsule 40 MG PO (09:31)
[2020-02-03] MEDS: Senna/Docusate Sodium 1 Tablet 2 TABLET PO (09:31)
[2020-02-03] MEDS: Doxycycline 100 MG CAPSULE PO (09:31)
[2020-02-03] MEDS: Famotidine 20 MG Tablet PO (09:31)
[2020-02-03] MEDS: Na Biphos/Potassium Phosphate PACKET 1 PACKET PO (10:25)
--- NOTE | 2020-02-03 11:28 | PCM.PN.ORT ---
Subjective: Patient is doing well. No acute events overnight. She has tolerated therapy over the last 24 hours. She feels more comfortable with discharge today. No chest pain or shortness of breath. No calf pain. - Physical Exam Vitals/I&O's: Vital Signs Temp Pulse Resp BP Pulse Ox 98.6 F 80 18 115/68 94 02/03/20 08:56 02/03/20 08:56 02/03/20 08:56 02/03/20 08:56 02/03/20 08:56 Oxygen Flow Rate (L/min) 2 Oxygen Delivery Method Room Air Weight: 174 lb 2.643 oz Body Mass Index (BMI) 28.0 Intake and Output for Last 24 Hours 02/01/20 02/02/20 02/03/20 23:59 23:59 23:59 Intake Total 4755.84 / 5355.84 3962.83 / 3962.83 500 / 500 Output Total 1900 / 1900 Balance 4755.84 / 4355.84 2062.83 / 2062.83 500 / 500 General: Alert, Oriented x3, Cooperative Extremities: - - Right lower extremity: Dressing is clean dry and intact Sensations intact to light touch saphenous, sural, superficial peroneal, deep peroneal, and tibial distributions Motors intact EHL, DF, PF calves are soft and supple Microbiology Past 72 Hours 02/01/20 Unknown Tissue - Knee Gram Stain - Final 02/01/20 Unknown Tissue - Knee Wound Culture - Preliminary No growth-Final to follow 02/01/20 Unknown Tissue - Knee Gram Stain - Final 02/01/20 Unknown Tissue - Knee Wound Culture - Preliminary No growth-Final to follow 02/01/20 Unknown Tissue - Knee Gram Stain - Final 02/01/20 Unknown Tissue - Knee Wound Culture - Preliminary No growth-Final to follow 02/01/20 Unknown Tissue - Knee Gram Stain - Final 02/01/20 Unknown Tissue - Knee Wound Culture - Preliminary No growth-Final to follow 01/31/20 08:30 Interface Orders SARS-CoV-2 Antigen (Rapid) - Final Laboratory Results 02/03/20 05:04: WBC 7.4, RBC 3.67 L, Hgb 10.6 L, Hct 33.0 L, MCV 89.9, MCH 28.9, MCHC 32.1, RDW Std Deviation 43.6, RDW Coeff of Mary 13.2, Plt Count 198, MPV 9.0 Current Medications Acetaminophen (Acetaminophen 500 Mg Tablet) 1,000 mg PO Q8 [facility] Last Admin: 02/03/20 06:02 Dose: 1,000 mg Documented by: Aspirin (Aspirin 81 Mg Tab.Chew) [facility] Last Admin: 02/03/20 07:59 Dose: 81 mg Documented by: Carvedilol (Carvedilol 12.5 Mg Tablet) 12.[facility] Last Admin: 02/03/20 07:59 Dose: 12.5 mg Documented by: Doxycycline Monohydrate (Doxycycline 100 Mg Capsule) 100 mg PO BID [facility] Last Admin: 02/03/20 09:31 Dose: 100 mg Documented by: Enteral Nutritional Formula (Ensure Surgery 237 Ml Liquid) 237 ml PO TIDCM [facility]CLUD[facility] Last Admin: 02/03/20 07:57 Dose: 237 ml Documented by: Famotidine (Famotidine 20 Mg Tablet) 20 mg PO DAILY [facility] Last Admin: 02/03/20 09:31 Dose: 20 mg Documented by: Fluoxetine HCl (Fluoxetine 20 Mg Capsule) 40 mg PO DAILY [facility] Last Admin: 02/03/20 09:31 Dose: 40 mg Documented by: Magnesium Chloride (Magnesium Chloride 64 Mg Delay Rel.Tablet) [facility] Last Admin: 02/03/20 08:01 Dose: 64 mg Documented by: Morphine Sulfate (Morphine 2 Mg/Ml Syringe) 2 - 4 mg IV Q2H PRN PRN PRN Reason: Pain Score 6-10 Morphine Sulfate (Morphine 4 Mg/Ml Syringe) 2 - 4 mg IV Q2H PRN PRN PRN Reason: Pain Score 6-10 Multivitamins/Minerals (Multivitamin (Healthy Eyes) Capsule) 2 [facility] Last Admin: 02/03/20 07:59 Dose: 2 capsule Documented by: Ondansetron HCl (Ondansetron 4 Mg/2 Ml Vial) 4 mg IV Q8H PRN PRN PRN Reason: NAUSEA Oxycodone HCl (Oxycodone 5 Mg Tablet) 5 - 10 mg PO Q4H PRN PRN PRN Reason: Pain Score 4-10 Last Admin: 02/03/20 06:03 Dose: 10 mg Documented by: Potassium Phos/Sodium Phos (Na Biphos/Potassium Phosphate Packet) 1 packet PO DAILY [facility] Last Admin: 02/03/20 10:25 Dose: 1 packet Documented by: Promethazine HCl (Promethazine 25 Mg/Ml Syringe) 12.5 mg IM Q6H PRN PRN; Protocol PRN Reason: NAUSEA/VOMITING Senna/Docusate Sodium (Senna/Docusate Sodium 1 Tablet) 2 tablet PO BID [facility] Last Admin: 02/03/20 09:31 Dose: 2 tablet Documented by: Sodium Chloride (0.9% Saline Lock 10 Ml Syringe) 10 - 40 ml IV UD PRN PRN Reason: SALINE FLUSH Medical Necessity - Tobacco Use Smoking Status: Never smoker Tobacco Use: Non-smoker Assessment/Plan All Active Problems (Last Updated 12/16/19 @ 10:37 by Adrián Murrieta, TESTING ANALYST, SALVAGE DIVER, BS) Acute chest pain (Resolved) Acute coronary syndrome with high troponin (Resolved) 1. S/P revision right total knee replacement POD #2 2. Continue Pain Medications: Tylenol and oxycodone 3. DVT Prophylaxis: Take 81 mg aspirin twice daily for 4 weeks postoperatively for DVT prophylaxis 4. PT/OT: Weightbearing as tolerated 5. H & H: Stable, asymptomatic. Postoperative anemia secondary to acute blood loss from surgery without any intra operative complications. 6. Continue antibiotics while following cultures: Currently on doxycycline 1 week postoperatively. Cultures showing no growth to date 7. Continue postoperative medical management per medicine, appreciate medical input 8. Encouraged Incentive Spirometry 9. Disposition: Plan will be for discharge home today. Patient was encouraged to continue with range of motion exercises over the weekend. First physical therapy scheduled for Thursday with orthopedics and sports medicine. [facility] Office:
[2020-02-03 13:55] VITALS: BP 130/68; PULSE 84; RESP 18; TEMP 36.7; O2SAT 97
== END 2020-02-03 13:30 | disposition home or self-care (01) | DRG 467 ==
LOC: ACINP 11:04 → MS3 15:25
PROVIDERS: Anesthesiology; Physician Assistant Surgical; Admitting Provider Specialist; PCP Family Medicine; Referring Provider Specialist; Visit Provider Specialist
PROC: 0SRC0JZ Replacement of Right Knee Joint with Synthetic Substitute, Open Approach (ICD-10-PCS; CPT 27447; principal; 2020-02-01 12:30)
DX: T84.84XA Pain due to internal orthopedic prosthetic devices, implants and grafts, initial encounter (principal); D62 Acute posthemorrhagic anemia; M17.11 Unilateral primary osteoarthritis, right knee; M85.69 Other cyst of bone, multiple sites; M25.761 Osteophyte, right knee; R26.89 Other abnormalities of gait and mobility; I25.2 Old myocardial infarction; I10 Essential (primary) hypertension; J45.909 Unspecified asthma, uncomplicated; E03.9 Hypothyroidism, unspecified; E78.1 Pure hyperglyceridemia; G25.81 Restless legs syndrome; F32.9 Major depressive disorder, single episode, unspecified; Z96.652 Presence of left artificial knee joint; Z79.899 Other long term (current) drug therapy; Z20.828 Contact with and (suspected) exposure to other viral communicable diseases
CPT/HCPCS: 36415; 73560; 80048; 82962; 83735; 85025; 85027; 87015; 87070; 87075; 87081; 87102; 87116; 87176; 87205; 87206; 87426; 94762; 97110; 97116; 97162; 97166; 97530; 97535; 99251; C1776; C9803; J7120; G0463; J2405

== ENCOUNTER → 2020-02-08 13:30 | Outpatient (CLI) | payer BC, SELFPAY ==
[2020-01-13 09:22] VITALS: BMI 28.3
[2020-02-01 17:32] VITALS: BMI 28.0
--- NOTE | 2020-02-08 13:33 | VDLE_ITS ---
Reason For Study: RLE pain RIGHT GSV is normal. CFV is compressible, spontaneous, phasic, competent and demonstrates normal augmentation. FV is compressible, spontaneous, phasic, competent and demonstrates normal augmentation. POP V is compressible, spontaneous, phasic, competent and demonstrates normal augmentation. T/P Trunk is compressible. PTV is compressible. RT PerV is compressible. Procedure This is a venous duplex using B-mode, color flow and spectral Doppler. Exam performed in department. The exam was diagnostic. A preliminary report was called and/or faxed to Dr. Zhang Zambrano @ [phone] @ 2 pm. Interpretation Summary Deep veins of the right lower extremity are patent and compressible segmentally. There is no evidence of right lower extremity deep vein thrombosis. Valvular competence appears intact within the proximal deep venous system on the right . The right great saphenous vein appears patent and compressible segmentally. Ordering Physician: Zhang Zambrano Referring Physician: Abdoul Cheng Performed By: Elsie Troy, BRITTANIE, RVT
== END ==
PROVIDERS: PCP Family Medicine; Referring Provider Specialist; Visit Provider Specialist
DX: M79.661 Pain in right lower leg (principal)
CPT/HCPCS: 93971

== ENCOUNTER 2020-05-29 14:14 | Outpatient (RCR) | payer OTHER, SELFPAY ==
[2019-12-16 10:31] VITALS: BMI 29.0
[2019-12-16 10:50] VITALS: BMI 29.0
[2020-01-13 09:22] VITALS: BMI 28.3
[2020-03-20 14:02] VITALS: BMI 29.0
== END 2020-05-29 23:59 | disposition home or self-care (01) ==
LOC: NS 14:14
PROVIDERS: PCP Family Medicine; Visit Provider Family Medicine
DX: Z71.3 Dietary counseling and surveillance (principal); E61.8 Deficiency of other specified nutrient elements; E66.3 Overweight; E78.1 Pure hyperglyceridemia; I10 Essential (primary) hypertension
CPT/HCPCS: 97802

== ENCOUNTER → 2020-11-08 16:50 | Outpatient (CLI) | payer OTHER, SELFPAY ==
[2020-01-13 09:22] VITALS: BMI 28.3
== END ==
PROVIDERS: PCP Family Medicine; Visit Provider Family Medicine
DX: U07.1 COVID-19 (principal); Z20.828 Contact with and (suspected) exposure to other viral communicable diseases
CPT/HCPCS: 87635; U0005; U0003

== ENCOUNTER 2021-03-26 15:10 | Outpatient (CLI) | payer OTHER, SELFPAY ==
[2020-01-13 09:22] VITALS: BMI 28.3
--- NOTE | 2021-03-26 15:14 | RAD_ITS ---
History: PREOP EXAMINATION/TECHNIQUE: XR Chest 2 Views: COMPARISON: November 08, 2019 FINDINGS: LINES/DEVICES: None. LUNGS: No consolidation, edema or effusion. Granuloma within the right lung again seen. No pneumothorax. MEDIASTINUM AND CARDIOVASCULAR STRUCTURES: Cardiac silhouette not enlarged. Central airways and mediastinal contour are unremarkable. BONES AND SOFT TISSUES: Unremarkable. RAD/Chest PA and Lateral IMPRESSION: No radiographic evidence of acute cardiopulmonary disease. at 1555 Reported and signed by: Saul Reyes MD Electronically Signed: Saul Reyes MD at 15:54 EST ,
== END 2021-03-26 23:59 | disposition home or self-care (01) ==
LOC: MTRAD 15:12
PROVIDERS: PCP Family Medicine; Referring Provider Family Medicine; Visit Provider Family Medicine
DX: Z01.811 Encounter for preprocedural respiratory examination (principal)
CPT/HCPCS: 71046

== ENCOUNTER → 2021-06-25 | Outpatient (CLI) | payer OTHER, SELFPAY ==
[2020-01-13 09:22] VITALS: BMI 28.3
--- NOTE | 2021-06-25 13:26 | RAD_ITS ---
STUDY: X-RAY - RIGHT FOOT CLINICAL: Female, 65 years old. PAIN TECHNIQUE: 3 view(s) of the foot. COMPARISON: None. FINDINGS: Normal talus, calcaneus, and tarsal bones. Small plantar posterior calcaneal enthesophytes. Normal visualized subtalar, talonavicular, calcaneocuboid, tarsal and tarsometatarsal articulations. Normal metatarsi. There is degenerative arthrosis of the metatarsophalangeal joint of the hallux . Normal tibial and fibular sesamoid bones. Normal interphalangeal joint of the great toe. Normal phalanges of the great toe. Normal second through fifth metatarsophalangeal joints. Normal interphalangeal joints and phalanges of the lesser toes. The soft tissue structures are unremarkable. RAD/Foot min 3 Views IMPRESSION: Severe first metatarsophalangeal joint arthrosis. Electronically Signed: Gadiel White MD at 15:46 EDT ,
== END | disposition home or self-care (01) ==
LOC: MTRAD 13:23
PROVIDERS: PCP Family Medicine; Referring Provider Podiatrist; Visit Provider Podiatrist
DX: M20.21 Hallux rigidus, right foot (principal)
CPT/HCPCS: 73630

== ENCOUNTER → 2021-10-11 | Outpatient (CLI) | payer OTHER, SELFPAY ==
[2020-01-13 09:22] VITALS: BMI 28.3
[2021-10-11 10:38] LABS: Cholesterol 205 mg/dL (200); High Density Lipoprotein 55 mg/dL; Triglycerides 126 mg/dL; Very Low Density Lipoprotein 25 mg/dL (5-40)
== END | disposition home or self-care (01) ==
LOC: MTLAB 07:58
PROVIDERS: PCP Family Medicine; Referring Provider Family Medicine; Visit Provider Family Medicine
DX: E78.5 Hyperlipidemia, unspecified (principal)
CPT/HCPCS: 36415; 80061

== ENCOUNTER → 2022-03-11 | Outpatient (CLI) | payer OTHER, SELFPAY ==
[2020-01-13 09:22] VITALS: BMI 28.3
[2022-03-11 18:58] LABS: Free T3 2.5 pg/mL (2.18-3.98); T4 Free Direct 0.76 ng/dL (0.76-1.46); Thyroid Stim Hormone (TSH) 1.11 uIU/mL (0.358-3.74)
[2022-03-12 09:17] LABS: AST(SGOT) 25 U/L (15-37); Alanine Aminotransfer ALT/SGPT 35 U/L (13-56); Albumin, Serum 3.9 g/dL (3.2-5.0); Alkaline Phosphatase 63 U/L (45-117); Anion Gap 10 (5-15); BUN 19 mg/dL (7-18); BUN/Creat Ratio 22.5 RATIO (10-20); Calcium,Total 9.5 mg/dL (8.5-10.1); Chloride 102 mmol/L (98-107); Creatinine, Serum 0.84 mg/dL (0.55-1.02); EST Glomerular Filtration Rate 72 mL/min (>60); Est Glom Filt Rate - Afr Amer 87 mL/min (>60); Globulin 3.8 g/dL (2.2-4.2); Glucose 99 mg/dL (74-106); Potassium 4.5 mmol/L (3.5-5.1); Protein, Total 7.7 g/dL (6.4-8.2); Sodium Level 140 mmol/L (136-145)
== END | disposition home or self-care (01) ==
LOC: BFHLAB 14:29
PROVIDERS: PCP Family Medicine; Visit Provider Family Medicine
DX: E03.9 Hypothyroidism, unspecified (principal); I10 Essential (primary) hypertension
CPT/HCPCS: 36415; 80053; 84439; 84443; 84481

== ENCOUNTER → 2022-04-16 | Outpatient (CLI) | payer OTHER, SELFPAY ==
[2020-01-13 09:22] VITALS: BMI 28.3
--- NOTE | 2022-04-16 07:49 | BI_ITS ---
MAMMOGRAPHY - BILATERAL SCREENING REASON FOR EXAM: Female, 66 years old. Routine annual screening examination. PERTINENT HISTORY: Non-contributory. TECHNIQUE: Digital bilateral breast raine (3D mammographic acquisition) in the CC and MLO projections. 2-D mediolateral oblique (MLO) and craniocaudad (CC) views of both breasts were obtained. CAD: Full Field Digital Mammography with Computer Added Detection was performed. COMPARISON: Comparison is made with prior study dated April 20, 2018 and August 19, 2016. FINDINGS: Breast Composition: There are scattered areas of fibroglandular density. There are no dominant masses or suspicious calcifications. No other significant abnormalities are identified. There has been no significant change since the prior study. BI/SCRN MAMM (CAD)W/RAINE BILAT IMPRESSION: Stable bilateral screening mammogram. Yearly follow-up mammogram recommended. (A) ASSESSMENT CATEGORY: BIRADS Category 1: Negative. A letter regarding these results will be sent to the patient by the facility within 30 days. Approximately 10% of breast cancers are not detected by mammography. A normal mammogram should not delay biopsy of a clinically suspicious abnormality. [id number] Electronically Signed: Zackary Liu MD at 12:37 EST ,
--- NOTE | 2022-04-16 07:49 | US_ITS ---
STUDY: ABDOMINAL ULTRASOUND - RIGHT UPPER QUADRANT REASON FOR VISIT: Female, 66 years old RUQ PAIN TECHNIQUE: Ultrasound evaluation of the right upper quadrant was performed with real-time and static enciso-scale imaging. TECHNICAL QUALITY: Adequate. COMPARISON: None. FINDINGS: Liver: The liver measures 16.2 cm. There is normal echogenicity of the liver. The bile ducts are within normal limits. There is hepatic color flow. The direction of portal flow is hepatopetal. There is no demonstrated mass lesion. Gallbladder: Normal distended gallbladder. The gallbladder wall measures 2.3 mm. There is a negative sonographic Jackson''s sign. There is no pericholecystic fluid. There are no gallstones. Common Bile Duct (C.B.D.): The common bile duct measures 2.7 mm. Pancreas: Normal size of the head, body and tail of the pancreas. There is normal echogenicity of the pancreas. There is no demonstrated pancreatic mass or cyst. Right Kidney: Normal size of the right kidney. The right kidney measures 10.6 x 5.1 cm x 4.7 cm. Normal renal cortex. The right cortex measures 1.5 cm. There is no demonstrated renal mass or cyst. There is no right hydronephrosis. US/Abdomen Limited IMPRESSION: Normal right upper quadrant ultrasound examination. Electronically Signed: Zackary Liu MD at 17:33 EST ,
== END | disposition home or self-care (01) ==
PROVIDERS: PCP Family Medicine; Visit Provider Family Medicine
DX: Z12.31 Encounter for screening mammogram for malignant neoplasm of breast (principal); R10.11 Right upper quadrant pain
CPT/HCPCS: 76705; 77063; 77067

== ENCOUNTER → 2022-08-08 | Outpatient (CLI) | payer OTHER, SELFPAY ==
[2020-01-13 09:22] VITALS: BMI 28.3
--- NOTE | 2022-08-08 11:58 | US_ITS ---
STUDY: THYROID ULTRASOUND REASON FOR EXAM: Female, 66 years old. Hypothyroidism. TECHNIQUE: Ultrasound evaluation of the thyroid was performed with real-time and static enciso-scale imaging. COMPARISON: None. FINDINGS: RIGHT LOBE: The right lobe of the thyroid gland measures 4.6 cm x 1.7 cm x 2.1 cm. There is a heterogeneous echotexture. Multiple subcentimeter cystic and solid nodule is seen. The largest nodule measures 9 mm x 8 mm x 8 mm. LEFT LOBE: The left lobe of the thyroid gland measures 4.8 cm x 1.9 cm x 2.4 cm. There is a heterogeneous echotexture. Multiple nodules are seen. There is a dominant 1.3 cm x 1.4 cm x 1.3 cm solid nodule in the midpole of the left lobe. Correlation with the nuclear medicine thyroid scan and uptake is recommended. ISTHMUS: The isthmus measures 2 mm. The regional lymph nodes are normal. US/Thyroid IMPRESSION: Multiple nodules are seen in both lobes of the thyroid. A dominant nodule is seen in the left lobe as described. Correlation with nuclear medicine uptake and thyroid scan recommended. Electronically Signed: Zackary Liu MD at 13:44 EDT ,
== END | disposition home or self-care (01) ==
PROVIDERS: PCP Family Medicine; Referring Provider Family Medicine; Visit Provider Family Medicine
DX: E03.9 Hypothyroidism, unspecified (principal)
CPT/HCPCS: 76536

== ENCOUNTER → 2022-11-17 | Outpatient (CLI) | payer OTHER, SELFPAY ==
[2020-01-13 09:22] VITALS: BMI 28.3
[2022-11-17 16:05] LABS: Free T3 2.7 pg/mL (2.18-3.98); T4 Free Direct 0.81 ng/dL (0.76-1.46); T4 Total, Thyroxin 6.3 ug/dL (4.8-13.9); Thyroid Stim Hormone (TSH) 1.03 uIU/mL (0.358-3.74)
== END | disposition home or self-care (01) ==
LOC: BFHLAB 13:33
PROVIDERS: PCP Family Medicine; Referring Provider Family Medicine; Visit Provider Family Medicine
DX: E78.5 Hyperlipidemia, unspecified (principal); E03.9 Hypothyroidism, unspecified
CPT/HCPCS: 36415; 84436; 84439; 84443; 84480; 84481

== ENCOUNTER → 2022-11-26 | Outpatient (CLI) | payer OTHER, SELFPAY ==
[2020-01-13 09:22] VITALS: BMI 28.3
--- NOTE | 2022-11-25 | ASPS_PTH ---
PATIENT: MARY KAY GREENWOOD LOC: [facility]#:[id number] AGE/SX: 67/F ROOM: RE11/26/[address]: Dr. Go eBrger MD : 1955 BED: DIS: 11/26/2022 SPEC #: [id number] RECD: 11/26/22 09:16 STATUS: CARINE CONRAD #: [id number] JULIA: 11/25/22 00:[address]: Go Berger DEPT: CYTOLOGY RECD BY: Huy Rosales ENTERED: 11/26/22 09:17 SP TYPE: ASPIRATION OTHR DR: Dr. Abdoul Cheng, DO Tissues: Thyroid gland, NOS Procedures: Special Stain Group II Cytology Other HEADER OPERATION: Left thyroid fine needle aspiration PRE-OP DIAGNOSIS: Left thyroid nodule TISSUE SUBMITTED: Left thyroid x8 slides DIAGNOSIS CYTOLOGY Left thyroid, fine needle aspiration (smears): Benign, consistent with benign follicular/colloid nodule ([place] Category II). Adequate for evaluation. See comment. SJ:rima 11/26/2022 COMMENT The specimen is paucicellular, however, meets the criteria for adequacy. Correlation with clinical, radiologic findings and appropriate follow up are necessary. CYTOLOGY STUDY Slides are reviewed. CYTOLOGY GROSS Received are eight smears labeled with the patient's name and designated per the requisition as left thyroid. Submitted for staining. / rima 11/25/2022 TC:5 CPT: 57701
== END | disposition home or self-care (01) ==
PROVIDERS: PCP Family Medicine; Referring Provider Surgery; Visit Provider Surgery
DX: E04.1 Nontoxic single thyroid nodule (principal)
CPT/HCPCS: 88161; 88313

== ENCOUNTER → 2022-11-27 | Outpatient (CLI) | payer OTHER, SELFPAY ==
[2020-01-13 09:22] VITALS: BMI 28.3
[2022-11-27 12:40] LABS: Cholesterol 234 mg/dL (200); High Density Lipoprotein 54 mg/dL; Triglycerides 108 mg/dL; Very Low Density Lipoprotein 22 mg/dL (5-40)
== END | disposition home or self-care (01) ==
LOC: BFHLAB 08:29
PROVIDERS: PCP Family Medicine; Visit Provider Family Medicine
DX: E78.5 Hyperlipidemia, unspecified (principal)
CPT/HCPCS: 36415; 80061

== ENCOUNTER → 2023-01-06 | Outpatient (CLI) | payer OTHER, SELFPAY ==
[2020-01-13 09:22] VITALS: BMI 28.3
[2023-01-06 18:17] LABS: Free T3 2.3 pg/mL (2.18-3.98); T4 Free Direct 0.76 ng/dL (0.76-1.46); T4 Total, Thyroxin 5.1 ug/dL (4.8-13.9); Thyroid Stim Hormone (TSH) 0.88 uIU/mL (0.358-3.74)
== END | disposition home or self-care (01) ==
LOC: BFHLAB 14:49
PROVIDERS: PCP Family Medicine; Referring Provider Family Medicine; Visit Provider Family Medicine
DX: E03.9 Hypothyroidism, unspecified (principal)
CPT/HCPCS: 36415; 84436; 84439; 84443; 84481

== ENCOUNTER → 2023-04-14 | Outpatient (CLI) | payer OTHER, SELFPAY ==
[2020-01-13 09:22] VITALS: BMI 28.3
--- NOTE | 2023-04-14 11:00 | RAD_ITS ---
INDICATION: PAIN EXAMINATION/TECHNIQUE: X-RAY - LEFT XR Foot Min 3 Views 3 VIEWS COMPARISON: No relevant prior comparison study available FINDINGS: SOFT TISSUES: Soft tissue swelling of the first metatarsophalangeal joint. No radiopaque foreign body. BONES/JOINTS: No acute fracture or subluxation..Severe degenerative arthrosis of the first metatarsophalangeal joint. Flattening of the plantar arch. Plantar and posterior calcaneal spurs. No sclerotic or destructive changes observed. RAD/Foot min 3 Views IMPRESSION: Degenerative arthrosis. Electronically Signed: Sukhwinder Calderón MD at 14:45 EST ,
== END | disposition home or self-care (01) ==
LOC: MTRAD 10:50
PROVIDERS: PCP Family Medicine; Referring Provider Podiatrist; Visit Provider Podiatrist
DX: M19.072 Primary osteoarthritis, left ankle and foot (principal)
CPT/HCPCS: 73630

== ENCOUNTER → 2023-05-15 | Outpatient (CLI) | payer OTHER, SELFPAY ==
[2020-01-13 09:22] VITALS: BMI 28.3
[2023-05-15 16:03] LABS: ALB/GLOB Ratio 0.9 RATIO (0.9-2.4); AST(SGOT) 26 U/L (15-37); Alanine Aminotransfer ALT/SGPT 36 U/L (13-56); Albumin, Serum 3.8 g/dL (3.2-5.0); Alkaline Phosphatase 63 U/L (45-117); Anion Gap 4 (5-15); BUN 17 mg/dL (7-18); Calcium,Total 9.5 mg/dL (8.5-10.1); Chloride 103 mmol/L (98-107); Creatinine, Serum 0.81 mg/dL (0.55-1.02); EST Glomerular Filtration Rate 76 mL/min (>60); Est Glom Filt Rate - Afr Amer 91 mL/min (>60); Globulin 4.1 g/dL (2.2-4.2); Glucose 102 mg/dL (74-106); Potassium 4.9 mmol/L (3.5-5.1); Protein, Total 7.9 g/dL (6.4-8.2); Sodium Level 136 mmol/L (136-145)
== END | disposition home or self-care (01) ==
LOC: BFHLAB 13:14
PROVIDERS: PCP Family Medicine; Visit Provider Family Medicine
DX: I10 Essential (primary) hypertension (principal); N39.0 Urinary tract infection, site not specified; R60.9 Edema, unspecified
CPT/HCPCS: 36415; 80053; 87077; 87086; 87088; 87186

== ENCOUNTER → 2023-06-16 | Outpatient (CLI) | payer OTHER, SELFPAY ==
[2020-01-13 09:22] VITALS: BMI 28.3
[2023-06-16 13:10] LABS: AST(SGOT) 27 U/L (15-37); Alanine Aminotransfer ALT/SGPT 42 U/L (13-56); Albumin, Serum 3.8 g/dL (3.2-5.0); Alkaline Phosphatase 59 U/L (45-117); Anion Gap 4 (5-15); BUN 14 mg/dL (7-18); BUN/Creat Ratio 21.3 RATIO (10-20); Calcium,Total 9.1 mg/dL (8.5-10.1); Chloride 106 mmol/L (98-107); Cholesterol 248 mg/dL (200); Creatinine, Serum 0.66 mg/dL (0.55-1.02); EST Glomerular Filtration Rate 96 mL/min (>60); Est Glom Filt Rate - Afr Amer 116 mL/min (>60); Free T3 4.1 pg/mL (2.18-3.98); Globulin 3.9 g/dL (2.2-4.2); Glucose 104 mg/dL (74-106); Hemoglobin A1c 5.5 % (3.8-5.6); High Density Lipoprotein 57 mg/dL; Potassium 4.2 mmol/L (3.5-5.1); Protein, Total 7.7 g/dL (6.4-8.2); Sodium Level 138 mmol/L (136-145); T4 Free Direct 0.79 ng/dL (0.76-1.46); T4 Total, Thyroxin 4.8 ug/dL (4.8-13.9); Thyroid Stim Hormone (TSH) 0.45 uIU/mL (0.358-3.74); Triglycerides 160 mg/dL; Very Low Density Lipoprotein 32 mg/dL (5-40)
== END | disposition home or self-care (01) ==
PROVIDERS: PCP Family Medicine; Referring Provider Family Medicine; Visit Provider Family Medicine
DX: E03.9 Hypothyroidism, unspecified (principal); R73.03 Prediabetes; I10 Essential (primary) hypertension; E78.5 Hyperlipidemia, unspecified
CPT/HCPCS: 36415; 80053; 80061; 83036; 84436; 84439; 84443; 84480; 84481

== ENCOUNTER → 2023-09-24 | Outpatient (CLI) | payer OTHER, SELFPAY ==
[2020-01-13 09:22] VITALS: BMI 28.3
[2023-09-24 10:47] LABS: Cholesterol 250 mg/dL (200); High Density Lipoprotein 47 mg/dL; T4 Total, Thyroxin 5.9 ug/dL (4.8-13.9); Thyroid Stim Hormone (TSH) 0.414 uIU/mL (0.358-3.740); Triglycerides 237 mg/dL; Very Low Density Lipoprotein 47 mg/dL (5-40)
[2023-09-24 13:47] LABS: T3 Total - Triiodothyronine 1.15 ng/mL (0.6-1.81)
== END | disposition home or self-care (01) ==
PROVIDERS: PCP Family Medicine; Referring Provider Family Medicine; Visit Provider Family Medicine
DX: E03.9 Hypothyroidism, unspecified (principal); E61.8 Deficiency of other specified nutrient elements; E78.5 Hyperlipidemia, unspecified
CPT/HCPCS: 36415; 80061; 84436; 84439; 84443; 84480; 84481

== ENCOUNTER → 2023-10-20 | Outpatient (CLI) | payer OTHER, SELFPAY ==
[2020-01-13 09:22] VITALS: BMI 28.3
== END | disposition home or self-care (01) ==
LOC: BFHLAB 14:55
PROVIDERS: PCP Family Medicine; Referring Provider Family Medicine; Visit Provider Family Medicine
DX: N39.0 Urinary tract infection, site not specified (principal)
CPT/HCPCS: 87086; 87088; 87186

== ENCOUNTER → 2023-11-11 | Outpatient (CLI) | payer OTHER, SELFPAY ==
[2020-01-13 09:22] VITALS: BMI 28.3
--- NOTE | 2023-11-11 12:28 | US_ITS ---
ACR Level 3 findings have been noted. An addendum which confirms receipt of the report will follow. INDICATION: thyroid nodule EXAMINATION: Ultrasound US Thyroid (eg thyroid, parathyroid, parotid) TECHNIQUE: Contreras scale and color doppler imaging was performed of the thyroid gland. COMPARISON: August 08, 2022. FINDINGS: RIGHT THYROID LOBE: 4.2 x 2.0 x 1.4 cm. Homogeneous echotexture with normal vascularity. Nodules: 1. Lower pole 1.2 x 0.9 x 1.2 cm solid heterogeneous hypoechoic nodule, taller than wide, with lobulated margins and macrocalcifications, TI RAD 5, increased in size and conspicuity from prior ultrasound 2. Mid pole 0.6 x 0.4 x 0.5 cm mixed cystic solid heterogeneous slightly hypoechoic nodule, wider than tall, with smooth margins and no calcifications, TI RAD 3, more cystic in appearance than prior exam without significant change in size 3. Mid pole 0.6 x 0.5 x 0.6 cm mixed cystic solid hypoechoic nodule, wider than tall, with smooth margins and macrocalcifications, TI RAD 4 (mostly cystic), unchanged in size with new calcification from prior exam. LEFT THYROID LOBE: 4.5 x 2.1 x 2.1 cm. Homogeneous echotexture with normal vascularity. Nodules: 1. Posterior mid pole 1.4 x 1.3 x 1.3 cm solid hypoechoic nodule wider than tall with smooth margins and no calcifications, TI RAD 4, unchanged from August 08, 2022 2. Superior pole 0.6 x 0.6 x 0.4 cm solid hypoechoic nodule wider than tall smooth margins and no calcifications, TI RAD 4, not significantly changed from August 08, 2022 ISTHMUS: 0.4 cm. No thyroid nodules are present. US/Thyroid IMPRESSION: Multinodular goiter with suspicious right lower pole 1.2 cm TI-RAD 5 nodule which is increased in size and conspicuity from prior ultrasound. Tissue sampling for histopathologic diagnosis is recommended. Dominant left thyroid 1.4 cm TI-RAD 4 nodule is unchanged from prior exam though may be amenable to fine-needle aspiration at time of right-sided nodule sampling. Otherwise 1 year follow-up ultrasound for this lesion is recommended. Electronically Signed: Slick Navarro MD at 10:14 EDT ,
== END | disposition home or self-care (01) ==
PROVIDERS: PCP Family Medicine; Referring Provider Surgery; Visit Provider Surgery
DX: E04.1 Nontoxic single thyroid nodule (principal)
CPT/HCPCS: 76536

== ENCOUNTER → 2023-11-17 | Outpatient (CLI) | payer OTHER, SELFPAY ==
[2020-01-13 09:22] VITALS: BMI 28.3
[2023-11-17 17:57] LABS: Free T3 2.6 pg/mL (2.18-3.98); T4 Free Direct 0.71 ng/dL (0.76-1.46); Thyroid Stim Hormone (TSH) 0.245 uIU/mL (0.358-3.740)
== END | disposition home or self-care (01) ==
LOC: MTLAB 15:51
PROVIDERS: PCP Family Medicine; Referring Provider Surgery; Visit Provider Surgery
DX: E04.1 Nontoxic single thyroid nodule (principal)
CPT/HCPCS: 36415; 84439; 84443; 84481

== ENCOUNTER → 2023-11-17 | Outpatient (CLI) | payer OTHER, SELFPAY ==
[2020-01-13 09:22] VITALS: BMI 28.3
--- NOTE | 2023-11-17 13:00 | ASPIG_PTH ---
PATIENT: MARY KAY GREENWOOD LOC: [facility] U#:[id number] AGE/SX: 68/F ROOM: RE11/17/[address]: Dr. Reagan Rascon MD : 1955 BED: DIS: 11/17/2023 SPEC #: [id number] RECD: 11/17/23 14:53 STATUS: CARINE REEdie #: [id number] JULIA: 11/17/23 13:[address]: Reagan Rascon DEPT: CYTOLOGY RECD BY: Dari Gamboa ENTERED: 11/18/23 13:01 SP TYPE: ASP OUT OTHR DR: Dr. Abdoul Cheng, DO Tissues: A - Thyroid gland, NOS B - Thyroid gland, NOS Procedures: FNA Specimen Adequacy Special Stain Group II Surgery Specimen Level IV Cytology Other HEADER OPERATION: Fine needle aspiration right thyroid nodule PRE-OP DIAGNOSIS: Right thyroid nodule TISSUE SUBMITTED: A- Right thyroid nodule fluid, B- Right thyroid nodule slides DIAGNOSIS CYTOLOGY A. Fine needle aspiration, right thyroid nodule fluid (cytospins and cellblock): Negative for malignant cells. See comment. B. Fine needle aspiration, right thyroid nodule (smears): Consistent with benign follicular nodule (Woodruff II). Chronic inflammation. AM. 11/19/2023 COMMENT A. Rare benign follicular cells are present. B. The Woodruff system for reporting thyroid cytopathology was used in the evaluation of this case. The specimen is adequate for evaluation. CYTOLOGY STUDY Slides are reviewed. CYTOLOGY GROSS A. Received is 40 ml of red-cloudy fluid labeled with the patient's name and and designated per the requisition as Right thyroid nodule fluid. Submitted for cytology preparation including cell block. B. Received are 4 smears labeled with the patient's name and designated per the requisition as Right thyroid nodule. Submitted for staining. 11/18/2023 TC:5 CPT: 49322,71466
== END | disposition home or self-care (01) ==
LOC: LABSPEC 15:03
PROVIDERS: PCP Family Medicine; Referring Provider Surgery; Visit Provider Surgery
DX: E04.1 Nontoxic single thyroid nodule (principal)
CPT/HCPCS: 88161; 88172; 88305; 88313

== ENCOUNTER → 2024-01-04 | Outpatient (CLI) | payer OTHER, SELFPAY ==
[2020-01-13 09:22] VITALS: BMI 28.3
--- NOTE | 2024-01-04 17:13 | US_ITS ---
STUDY: RENAL ULTRASOUND - COMPLETE REASON FOR EXAM: Female, 68 years old. UTI TECHNIQUE: Ultrasound evaluation of the kidneys was performed with real-time and static allen-scale imaging. COMPARISON: None. FINDINGS: RIGHT KIDNEY: Normal location of the right kidney, which is normal in size. The right kidney measures 12.2 cm. There is a normal cortex of the right kidney. The renal cortex measures 1.5 cm. There is no right renal mass or cyst. There are no right renal calculi. There is no right hydronephrosis. DISTAL RIGHT URETER: There is non-visualization of the distal right ureter. There is no demonstrated right ureterovesical junction calculus. There is a visualized right ureteral jet. LEFT KIDNEY: Normal location of the left kidney, which is normal in size. The left kidney measures 12.1 cm. There is a normal cortex of the left kidney. The renal cortex measures 1.7 cm. There is no left renal mass or cyst. There are no left renal calculi. There is no left hydronephrosis. DISTAL LEFT URETER: There is non-visualization of the distal left ureter. There is no demonstrated left ureterovesical junction calculus. There is a visualized left ureteral jet. BLADDER: The distended urinary bladder has a volume of 129 ml. The empty urinary bladder has a volume of 3 ml. There is a normal wall thickness of the distended urinary bladder. There is no demonstrated mass within the urinary bladder. There are no demonstrated bladder calculi. US/Kidney and Bladder IMPRESSION: Normal ultrasound of the kidneys and urinary bladder. Electronically Signed: Gadiel White MD at 9:17 EST ,
== END | disposition home or self-care (01) ==
LOC: US 17:11
PROVIDERS: PCP Family Medicine; Referring Provider Urology; Visit Provider Urology
DX: N39.0 Urinary tract infection, site not specified (principal)
CPT/HCPCS: 76770

== ENCOUNTER → 2024-02-18 | Outpatient (CLI) | payer OTHER, SELFPAY ==
[2020-01-13 09:22] VITALS: BMI 28.3
[2024-02-18 15:34] LABS: Free T3 2.2 pg/mL (2.18-3.98); T4 Free Direct 0.76 ng/dL (0.76-1.46); Thyroid Stim Hormone (TSH) 0.884 uIU/mL (0.358-3.740)
== END | disposition home or self-care (01) ==
PROVIDERS: PCP Family Medicine; Referring Provider Family Medicine; Visit Provider Family Medicine
DX: E03.9 Hypothyroidism, unspecified (principal); E61.8 Deficiency of other specified nutrient elements
CPT/HCPCS: 36415; 84439; 84443; 84481

== ENCOUNTER → 2024-04-19 | Outpatient (CLI) | payer OTHER, SELFPAY ==
[2020-01-13 09:22] VITALS: BMI 28.3
[2024-04-19 18:47] LABS: Amylase 50 U/L (28-100); Ferritin 156 ng/mL (22-378); Free T3 2.5 pg/mL (2.18-3.98); Iron 52 ug/dL (50-170); Lipase 37 U/L (13-75); Thyroid Stim Hormone (TSH) 0.793 uIU/mL (0.300-4.200)
== END | disposition home or self-care (01) ==
LOC: BFHLAB 16:30
PROVIDERS: PCP Family Medicine; Visit Provider Family Medicine
DX: R73.03 Prediabetes (principal); R71.8 Other abnormality of red blood cells; E03.9 Hypothyroidism, unspecified; K86.89 Other specified diseases of pancreas; E61.8 Deficiency of other specified nutrient elements
CPT/HCPCS: 36415; 82150; 82728; 83036; 83540; 83690; 84439; 84443; 84481

== ENCOUNTER → 2024-05-04 | Outpatient (CLI) | payer OTHER, SELFPAY ==
[2020-01-13 09:22] VITALS: BMI 28.3
== END | disposition home or self-care (01) ==
LOC: BFHLAB 12:00
PROVIDERS: PCP Family Medicine; Visit Provider Family Medicine
DX: E03.9 Hypothyroidism, unspecified (principal)
CPT/HCPCS: 36415

== ENCOUNTER → 2024-07-01 | Outpatient (CLI) | payer OTHER, SELFPAY ==
[2020-01-13 09:22] VITALS: BMI 28.3
== END | disposition home or self-care (01) ==
LOC: MTLAB 14:56
PROVIDERS: PCP Family Medicine; Referring Provider Family Medicine; Visit Provider Family Medicine
DX: E03.9 Hypothyroidism, unspecified (principal); E61.8 Deficiency of other specified nutrient elements
CPT/HCPCS: 36415; 84439; 84443

== ENCOUNTER → 2024-09-15 | Outpatient (CLI) | payer OTHER, SELFPAY ==
[2020-01-13 09:22] VITALS: BMI 28.3
== END | disposition home or self-care (01) ==
LOC: BFHLAB 15:20
PROVIDERS: PCP Family Medicine; Visit Provider Family Medicine
DX: E03.9 Hypothyroidism, unspecified (principal); I10 Essential (primary) hypertension; R73.03 Prediabetes
CPT/HCPCS: 36415; 80053; 83036; 84439; 84443; 84481

== ENCOUNTER → 2024-09-21 | Outpatient (CLI) | payer OTHER, SELFPAY ==
[2020-01-13 09:22] VITALS: BMI 28.3
[2024-09-21 13:02] LABS: AST(SGOT) 24 U/L (<=31); Alanine Aminotransfer ALT/SGPT 26 U/L (<=34); Albumin, Serum 4.2 g/dL (3.4-4.8); Alkaline Phosphatase 66 U/L (35-104); Anion Gap 12 (5-15); BUN 20 mg/dL (4-19); BUN/Creat Ratio 23.8 RATIO (10-20); Calcium,Total 9.7 mg/dL (7.6-11.0); Carbon Dioxide 24.2 mmol/L (21.0-32.0); Chloride 103 mmol/L (98-108); Free T3 2.6 pg/mL (2.18-3.98); Globulin 2.8 g/dL (2.2-4.2); Glucose 155 mg/dL (70-99); Potassium 3.8 mmol/L (3.3-5.1)
== END | disposition home or self-care (01) ==
LOC: BFHLAB 11:00
PROVIDERS: PCP Family Medicine; Visit Provider Family Medicine
DX: E03.9 Hypothyroidism, unspecified (principal); I10 Essential (primary) hypertension; R73.03 Prediabetes
CPT/HCPCS: 80053; 84439; 84443; 84481

== ENCOUNTER → 2024-10-14 | Outpatient (CLI) | payer OTHER, SELFPAY ==
[2020-01-13 09:22] VITALS: BMI 28.3
--- NOTE | 2024-10-14 11:42 | US_ITS ---
PROCEDURE: THYROID 10/14/2024 REASON FOR EXAM: THYROID NODULE TECHNIQUE: Procedure Code: USTHY Modality: US Procedure: THYROID FINDINGS: Right thyroid lobe size: cm Left thyroid lobe size: cm Isthmus: cm Background parenchymal echotexture is homogeneous. Nodules: 1. Lobe: Right, Location: Lower pole, Size: 1.3 cm, Stability: Stable Composition: Solid or almost completely solid (+2) Echogenicity: Hyper to Isoechoic (+1) Margin: Lobulated (+2) versus irregular. Shape: Taller than wide (+3) Echogenic Foci: Macrocalcification (+1) TI-RADS: 5. Highly suspicious. FNA recommended over 1.0 cm (similar to prior). 2. Lobe: Right, Location: Midpole, Size: 0.6 cm, Stability: Stable Composition: Mixed cystic and solid (+1) Echogenicity: Hyper to Isoechoic (+1) Margin: Ill-defined (+0) Shape: Wider than tall (+0). Doubtful on the current exam that this taller than wide. Echogenic Foci: None (+0) TI-RADS: 2. Not suspicious 3. Lobe: Right, Location: Midpole, Size: 0.5 cm, Stability: Intermediate echotexture mural nodule shows no color flow; it is more consolidated on today's exam suggesting a colloid cyst. Composition: Cystic or mostly cystic (+0) Echogenicity: Hyper to Isoechoic (+1) Margin: Smooth (+0) Shape: Wider than tall (+0) Echogenic Foci: None (+0) TI-RADS: 1. No follow-up required. 4. Lobe: Left, Location: Midpole, Size: 0.6 cm, Stability: Stable Composition: Solid or almost completely solid (+2). Note, there is some through transmission possibly representing a complicated, but nevertheless similar to prior. Echogenicity: Hypoechoic (+2) Margin: Smooth (+0) Shape: Wider than tall (+0). Remeasured on image 65. Echogenic Foci: None (+0) TI-RADS: 4. Moderately suspicious. No follow-up required based on size. 6. Lobe: Left, Location: Lower pole, Size: 16 cm, Stability: Stable Composition: Solid or almost completely solid (+2) Echogenicity: Hyper to Isoechoic (+1) Margin: Ill-defined (+0) Shape: Wider than tall (+0) Echogenic Foci: None (+0) TI-RADS: 3. Mildly suspicious. Follow-up at 1 3 and 5 years based on size. Oldest available exam dates to August 08, 2022. US/Thyroid IMPRESSION: 1. No new nodule. No worrisome change. Reading Location: [facility]
== END | disposition home or self-care (01) ==
LOC: US 11:41
PROVIDERS: PCP Family Medicine; Referring Provider Surgery; Visit Provider Surgery
DX: E04.1 Nontoxic single thyroid nodule (principal)
CPT/HCPCS: 76536

== ENCOUNTER → 2024-11-21 | Outpatient (CLI) | payer OTHER, SELFPAY ==
[2020-01-13 09:22] VITALS: BMI 28.3
--- NOTE | 2024-11-21 10:49 | RAD_ITS ---
PROCEDURE: LEFT FOOT MIN 3 VIEWS 11/21/2024 REASON FOR EXAM: PAIN TECHNIQUE: Procedure Code: RADFO Modality: DX Procedure: FOOT MIN 3 VIEWS Laterality: Left COMPARISON: None. FINDINGS: No acute fracture or dislocation. Pes planus deformity. Hallux rigidus with advanced degenerative arthrosis of the 1st MTP joint. Remaining joint spaces are relatively well preserved. Mild dorsal and plantar calcaneal spurring. No marked soft tissue swelling or unusual mineralization. RAD/Foot min 3 Views IMPRESSION: 1. No acute abnormality. 2. Pes planus deformity. 3. 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 4. Small calcaneal spurs. Reading Location: [id number]
== END | disposition home or self-care (01) ==
LOC: MTRAD 10:46
PROVIDERS: PCP Family Medicine; Referring Provider Podiatrist; Visit Provider Podiatrist
DX: M20.22 Hallux rigidus, left foot (principal)
CPT/HCPCS: 73630

== ENCOUNTER → 2024-12-08 | Outpatient (CLI) | payer OTHER, SELFPAY ==
[2020-01-13 09:22] VITALS: BMI 28.3
[2024-12-08 14:15] LABS: Albumin, Serum 4.1 g/dL (3.4-4.8); Anion Gap 13 (5-15); BUN 20 mg/dL (4-19); BUN/Creat Ratio 27.2 RATIO (10-20); Calcium,Total 9.7 mg/dL (7.6-11.0); Carbon Dioxide 22.6 mmol/L (21.0-32.0); Chloride 102 mmol/L (98-108); Free T3 2.3 pg/mL (2.18-3.98); Glucose 125 mg/dL (70-99); Potassium 3.8 mmol/L (3.3-5.1)
[2024-12-08 14:17] LABS: CRP < 3.00 mg/L (0.0-3.0)
== END | disposition home or self-care (01) ==
LOC: MTLAB 11:03
PROVIDERS: PCP Family Medicine; Referring Provider Family Medicine; Visit Provider Family Medicine
DX: E03.9 Hypothyroidism, unspecified (principal); E04.2 Nontoxic multinodular goiter; E61.8 Deficiency of other specified nutrient elements; I10 Essential (primary) hypertension; M79.10 Myalgia, unspecified site
CPT/HCPCS: 36415; 80069; 82085; 84439; 84443; 84481; 85652; 86140

== ENCOUNTER → 2024-12-12 | Outpatient (CLI) | payer OTHER, SELFPAY ==
[2020-01-13 09:22] VITALS: BMI 28.3
== END | disposition home or self-care (01) ==
LOC: BFHLAB 14:22
PROVIDERS: PCP Family Medicine; Visit Provider Family Medicine
DX: E03.9 Hypothyroidism, unspecified (principal); E04.2 Nontoxic multinodular goiter; E61.8 Deficiency of other specified nutrient elements; I10 Essential (primary) hypertension; M79.10 Myalgia, unspecified site
CPT/HCPCS: 84244